=== PATIENT | female | born 1960 | race Caucasian/White ===

== ENCOUNTER 2024-05-20 09:12 | Outpatient (REF) | payer MEDICARE, SELFPAY ==
--- OUTSIDE RECORDS SUMMARY | 2024-05-20 09:21 | XMS_ITS | Data Portability ---
Author Organization [facility], Main Office Address [address] [place] [address] Care Team Providers Care Gravel Roofer Name Role Phone CLAYTON MARTINEZ Urogynecologist KO NICHOLAS Survey Manager DOUGLAS KILPATRICK Neurologist ABIDA WILL Orthopedic Surgeon TAYLER SIM Cassandra Developer MIGUEL ANGEL CESAR Psychiatrist CAROLINA THOMPSON Emt Dispatcher MOIRA TOBAR Primary Care Provider [facility] BERYL PALOMO Wire Coating Operator Metal [phone] Assessment Encounter Date Assessment Date Assessment LastModified by Organization Details LastModified Time 01/11/2022 01/11/2022 This service was provided using telemedicine. Patient consented to video & audio visit Patient was located in the [facility]. Provider was located in the office. No other persons participated in the telemedicine visit except for the patient unless otherwise indicated here. {{}} Total time of visit was 20 minutes. Notes tactile temps, fatigue, headaches, nasal congestion for >1 week consistent with possible sinusitis. Will start doxycycline and follow up as needed if not improving. [email or web address] Not available 01/11/2022 09:46:06 Plan of Treatment Reminders Order Date Submit Date Provider Last Modified By Organization Details Last Modified Time Details Appointments None acostae dVaibhav Lab lipid panel, serum 2021 022 [facility], [address], [address], [place], [address], 20:14:49 TSH, serum or plasma 2021 [facility], [address], [address], [place], [address], 20:17:01 CBC w/ auto diff 2021 [facility], [address], [address], [place], [address], 16:37:32 T4, free, serum 2021 [facility], [address], [address], [place], [address], 20:17:00 HbA1c (hemogl obin A1c), blood 2021 [facility], [address], [address], [place], [address], 17:51:54 CMP, serum or plasma 2021 [facility], [address], [address], [place], [address], 20:14:47 iron + total iron-bi nding capacit y (TIBC), serum 2021 [facility], [address], [address], [place], [address], 20:14:48 thyrogl obulin Ab, serum 2021 [facility], [address], [address], [place], [address], 10/09/202 2 14:08:44 thyroid peroxid ase (tpo) Ab, serum 2021 022 [facility], [address], [address], [place], [address], 2 14:08:45 ferriti n, serum or plasma 2021 022 [facility], [address], [address], [place], [place], [address], 2 20:16:59 CMP, serum or plasma 2022 023 [facility], [address], [address], [place], [address], 3 17:39:00 lipid panel, serum 2022 023 [facility], [address], [address], [place], [place], [address], 3 17:39:02 TSH, serum or plasma 2022 023 [facility], [address], [address], [place], [address], 3 17:42:34 CBC w/ auto diff 2022 023 [facility], [address], [address], [place], [place], [address], 3 15:04:53 T4, free, serum 2022 023 [facility], [address], [address], [place], [address], 3 17:42:32 CMP, serum or plasma 2023 024 [facility], [address], [address], [place], [place], [address], 4 06:08:22 ESR (erythr ocyte sedimen tation rate), blood 2023 [facility], [address], [place], [address], 4 06:08:25 rf (rheuma toid factor) , serum 2023 [facility], [address], [place], [address], 4 06:08:24 ALEJANDRO (antinu clear antibod ies) screen, ifa, serum 2023 [facility], [address], [place], [address], 4 06:08:23 borreli a burgdor feri IgG + IgM + total panel, IA, serum 2023 [facility], [address], [place], [address], 4 06:08:25 unliste d lab - CRP+hla -B27 2023 [facility], [address], [place], [address], 4 06:08:20 lipid panel, serum 2023 [facility], [address], [address], [place], [address], 4 06:08:23 CBC w/ auto diff 2023 [facility], [address], [address], [place], [address], 4 06:08:21 TSH + free T4, serum 2023 [facility], [address], [address], [place], [address], 4 06:08:19 strep group A, DNA, swab 2023 [facility] In-Office Order, Internal Use Only DO Not Attach Compendium DO Not Attach Compendium, Do Not Delete/merge, [id number] 4 09:47:27 heterop hile Ab, qualita tive latex aggluti nation, serum 2023 [facility], [address], [address], [place], [address], 4 06:09:13 Referral rheumat ologist referra l - hx arthrit is, nodes, deformi ties fingers sister just diagnos ed with RA 2023 [facility], [address] [place] [address], [address], 4 10:48:42 neurolo gist referra l - hx migrain es, fibromy algia, followe d by Dr. Kilpatrick who retired , needs new neurolo gist 2023 ALE Aldridge MD, [address] [place] [address] [address], [place], [address], 4 12:16:17 Procedures None recorde d. Surgeries None recorde d. Imaging bone density - due for screeni ng 2021 022 [email or web address] [facility], [address], [place], [address], 3 14:06:40 electro cardiog clarisse 2021 022 [email or web address] In-Office Order, Internal Use Only DO Not Attach Compendium DO Not Attach Compendium, Do Not Delete/merge, [id number] 2 10:19:42 MAMMO, screeni ng, ailin al - Perform Diagnos tic Mammogr am and Breast Ultraso und if needed / Perform Ultraso und Guided Aspirat ion and/or Breast Biopsy if warrant ed 2021 022 [email or web address] [facility], [address], [address], [place], [address], 10:19:42 electro cardiog clarisse 2022 023 [email or web address] In-Office Order, Internal Use Only DO Not Attach Compendium DO Not Attach Compendium, Do Not Delete/merge, [id number] 3 09:22:01 Medication Orders doxycyc line hyclate 100 mg capsule 2021 022 [email or web address] [id number], [address] [address], [place], [address], 09:36:54 hydroco done 7.5 mg-acet aminoph en 325 mg tablet 2023 024 [facility] [place], [place], [address] [place], [address], 4 16:22:03 Patient TargetsNo targets recorded. Patient Instructions Encounter Date Encounter Id Patient Instructions Last Modified By Organization Details Last Modified Time 01/11/2022 [id number] Acute Sinusitis: Care Instructions [email or web address] Not available 01/11/2022 09:48:37 03/08/2022 [id number] call or return for worsening or concerns. [email or web address] Not available 03/08/2022 10:26:13 03/11/2023 [id number] To call or retur n for worsening or concerns [email or web address] Not available 03/11/2023 08:58:47 03/16/2024 [id number] To call or retur n for worsening or concerns [email or web address] Not available 03/16/2024 10:59:13 04/06/2024 [id number] mononucleosis: care instructions [email or web address] Not available 04/06/2024 09:33:53 To call or retur n for worsening or concerns [email or web address] Not available 04/06/2024 09:33:57 Reason for Referral Permastone Mechanic Referral for Osteoarthritis hx arthritis, nodes, deformities fingers sister just diagnosed with RA Referring Physician: Moira Tobar [facility], Encounter Date: 03/16/2024 Neurologist Referral for Alexander mcbride hx migraines, fibromyalgia, followed by Dr. Kilpatrick who retired, needs new neurologist Referring Physician: Moira Tobar [facility], Encounter Date: 03/16/2024 Results Created Date Observation Date Name Description Value Unit Range Abnormal Flag Note LastModifiedBy Organization Detail LastModifiedTime 03/08/20 22 03/08/2022 COMPL ETE CBC WITH DIFF WBC 4.5 K/mm3 (4.0-1 1.0) Not Available [facility] [address] [place], [address], 03/08/2022 16:37:32 03/08/2003/08/2022 COMPL ETE CBC WITH DIFF RBC 4.88 M/mm3 (4.20- 5.40) Not Available [facility] [address] [place], [address], 03/08/2022 16:37:32 03/08/20 22 03/08/2022 COMPL ETE CBC WITH DIFF HGB 14.4 gm/dL (11.7- 15.5) Not Available [facility] [address] [place], [address], 03/08/2022 16:37:32 03/08/20 22 03/08/2022 COMPL ETE CBC WITH DIFF HCT 42.5 % (35.7- 45.8) Not Available [facility] [address] [place], [address], 03/08/2022 16:37:32 03/08/20 22 03/08/2022 COMPL ETE CBC WITH DIFF MCV 87.1 fL (80.0- 100.0) Not Available [facility] [address] [place], [address], 03/08/2022 16:37:32 03/08/20 22 03/08/2022 COMPL ETE CBC WITH DIFF MCH 29.5 pg (27.0- 34.0) Not Available [facility] [address] [place], [address], 03/08/2022 16:37:32 03/08/20 22 03/08/2022 COMPL ETE CBC WITH DIFF MCHC 33.9 g/dL (33.0- 37.0) Not Available [facility] [address] [place], [address], 03/08/2022 16:37:32 03/08/20 22 03/08/2022 COMPL ETE CBC WITH DIFF plt 152 K/mm3 (150-4 60) Not Available [facility] [address] [place], [address], 03/08/2022 16:37:32 03/08/20 22 03/08/2022 COMPL ETE CBC WITH DIFF RDW-SD 39.7 fL (<47.0 ) Not Available [facility] [address] [place], [address], 03/08/2022 16:37:32 03/08/20 22 03/08/2022 COMPL ETE CBC WITH DIFF MPV 10.5 fL (9.4-1 2.4) Not Available [facility] [address] [place], [address], 03/08/2022 16:37:32 03/08/20 22 03/08/2022 COMPL ETE CBC WITH DIFF automated NRBC 0.0 #/100 _WBC' s Not Available [facility] [address] [place], [address], 03/08/2022 16:37:32 03/08/20 22 03/08/2022 COMPL ETE CBC WITH DIFF abs. NRBC 0.0 K/mm3 Not Available [facility] [address], [address], 03/08/2022 16:37:32 03/08/20 03/08/2022 COMPL ETE CBC WITH DIFF neut # 2.7 K/mm3 (1.3-7 .0) Not Available [facility] [address] [place], [address], 03/08/2022 16:37:32 03/08/20 22 03/08/2022 COMPL ETE CBC WITH DIFF lymph # 1.0 K/mm3 (0.8-3 .1) Not Available [facility] [address] [place], [address], 03/08/2022 16:37:32 03/08/20 22 03/08/2022 COMPL ETE CBC WITH DIFF mono# 0.5 K/mm3 (0.4-0 .9) Not Available [facility] [address] [place], [address], 03/08/2022 16:37:32 03/08/20 22 03/08/2022 COMPL ETE CBC WITH DIFF eo # 0.1 K/mm3 (0.0-0 .4) Not Available [facility] [address] [place], [address], 03/08/2022 16:37:32 03/08/20 22 03/08/2022 COMPL ETE CBC WITH DIFF baso # 0.0 K/mm3 (0.0-0 .1) Not Available [facility] [address] [place], [address], 03/08/2022 16:37:32 03/08/20 22 03/08/2022 COMPL ETE CBC WITH DIFF abs. imm gran 0.0 K/mm3 Not Available [facility] [address] [place], [address], 03/08/2022 16:37:32 03/08/20 22 03/08/2022 COMPL ETE CBC WITH DIFF neut 61.0 % (44-76 ) Not Available [facility] [address] [place], [address], 03/08/2022 16:37:32 03/08/20 22 03/08/2022 COMPL ETE CBC WITH DIFF lymph 22.2 % (15-43 ) Not Available [facility] [address] [place], [address], 03/08/2022 16:37:32 03/08/20 22 03/08/2022 COMPL ETE CBC WITH DIFF monocyte 12.1 % (4.5-1 0.5) high Not Available [facility] [address] [place], [address], 03/08/2022 16:37:32 03/08/20 22 03/08/2022 COMPL ETE CBC WITH DIFF eo 3.1 % (0-6) Not Available [facility] [address] [place], [address], 03/08/2022 16:37:32 03/08/20 22 03/08/2022 COMPL ETE CBC WITH DIFF baso 0.9 % (0-2) Not Available [facility] [address] [place], [address], 03/08/2022 16:37:32 03/08/20 22 03/08/2022 COMPL ETE CBC WITH DIFF imm gran 0.7 % Not Available [facility] [address] [place], [address], 03/08/2022 16:37:32 03/08/20 22 03/08/2022 HEMOG LOBIN A1C hemoglobin A1C 5.5 % (4.0-5 .6) MONIT ORING : In known diabe tic patie nts, hemog lobin A1c targe ts masood d be discu ssed with healt h care provi marline. DIAGN OSTIC USE: The Ameri can Diabe jesu Assoc iatio n (ADA) and the World Healt h Organ izati on (WHO) recom mend the use of HbA1c to diagn ose diabe jesu using a thres hold of 6.5%. Patie nts who have an HbA1c betwe en 5.7% and 6.4% are consi dered at incre ased risk for devel oping diabe jesu in the cristofer WINTERS ON: False ly low HbA1c resul ts may be obser shalom in patie nts with hemol ytic anemi a, homoz ygous forms of abnor mal hemog lobin (e.g. SS, CC, SC), pregn derek, recen t blood loss or hemog lobin F great er than 7%. Fruct osami ne may be used as an alter juan pablo test in these cases . REFER ENCE: ADA: Stand ards of Medic al Care in Diabe jesu 2019, The Journ al of Clini zac and Appli ed Resea rch and Educa tion Volum e 43, Suppl ement 1 Not Available [facility] [address] [place], [address], 03/08/2022 17:51:54 03/08/20 22 03/08/2022 COMPR EHENS REMI METAB OLIC PANL glucose 95 mg/dL (70-99 ) Not Available [facility] [address] [place], [address], 03/08/2022 20:14:46 03/08/20 22 03/08/2022 COMPR EHENS REMI METAB OLIC PANL BUN 15 mg/dL (8-23) Not Available [facility] [address] [place], [address], 03/08/2022 20:14:46 03/08/20 22 03/08/2022 COMPR EHENS REMI METAB OLIC PANL creatinine 0.6 mg/dL (0.5-1 .0) Not Available [facility] [address] [place], [address], 03/08/2022 20:14:46 03/08/20 22 03/08/2022 COMPR EHENS REMI METAB OLIC PANL sodium 138 mmol/ L (133-1 45) Not Available [facility] [address] [place], [address], 03/08/2022 20:14:46 03/08/20 22 03/08/2022 COMPR EHENS REMI METAB OLIC PANL potassium 4.5 mmol/ L (3.6-5 .2) Not Available [facility] [address] [place], [address], 03/08/2022 20:14:46 03/08/20 22 03/08/2022 COMPR EHENS REMI METAB OLIC PANL chloride 100 mmol/ L (98-10 7) Not Available [facility] [address] [place], [address], 03/08/2022 20:14:46 03/08/20 22 03/08/2022 COMPR EHENS REMI METAB OLIC PANL bicarbonate 26 mmol/ L (22-29 ) Not Available [facility] [address] [place], [address], 03/08/2022 20:14:46 03/08/20 22 03/08/2022 COMPR EHENS REMI METAB OLIC PANL anion gap 12 (4-17) Not Available [facility] [address] [place], [address], 03/08/2022 20:14:46 03/08/20 22 03/08/2022 COMPR EHENS REMI METAB OLIC PANL albumin 5.1 gm/dL (3.4-4 .8) high Not Available [facility] [address] [place], [address], 03/08/2022 20:14:46 03/08/20 22 03/08/2022 COMPR EHENS REMI METAB OLIC PANL calcium 9.5 mg/dL (8.6-1 0.5) Not Available [facility] [address] [place], [address], 03/08/2022 20:14:46 03/08/20 22 03/08/2022 COMPR EHENS REMI METAB OLIC PANL bilirubin,to preston 0.5 mg/dL (0-1.2 ) Not Available [facility] [address] [place], [address], 03/08/2022 20:14:46 03/08/20 22 03/08/2022 COMPR EHENS REMI METAB OLIC PANL total protein 7.1 gm/dL (6.2-8 .2) Not Available [facility] [address] [place], [address], 03/08/2022 20:14:46 03/08/20 22 03/08/2022 COMPR EHENS REMI METAB OLIC PANL Ag ratio 2.6 Not Available [facility] [address] [place], [address], 03/08/2022 20:14:46 03/08/20 22 03/08/2022 COMPR EHENS REMI METAB OLIC PANL AST 20 U/L (0-32) Not Available [facility] [address] [place], [address], 03/08/2022 20:14:46 03/08/20 22 03/08/2022 COMPR EHENS REMI METAB OLIC PANL alk phos 63 U/L (35-10 4) Not Available [facility] [address] [place], [address], 03/08/2022 20:14:46 03/08/20 22 03/08/2022 COMPR EHENS REMI METAB OLIC PANL ALT 25 U/L (0-33) Not Available [facility] [address] [place], [address], 03/08/2022 20:14:46 03/08/20 22 03/08/2022 COMPR EHENS REMI METAB OLIC PANL estimated GFR creatinine 104 mL/mi n/1.7 3_M2 Creat inine based estim ated glome rular filtr ation (eGFR ) in adult s is calcu lated using the Natio nal Kidne y Found ation recom edel d 2020 CKD-E PI equat ion. Estim ates GFR from serum creat inine , age and sex. Not Available [facility] [address] [place], [address], 03/08/2022 20:14:46 03/08/20 22 03/08/2022 IRON & TIBC iron 104 mcg/d L (30-16 0) Not Available [facility] [address] [place], [address], 03/08/2022 20:14:48 03/08/20 22 03/08/2022 IRON & TIBC unsaturated iron binding capac 228 mcg/d L (110-3 70) Not Available [facility] [address] [place], [address], 03/08/2022 20:14:48 03/08/20 22 03/08/2022 IRON & TIBC est T. iron bind capacity 332 mcg/d L (140-5 30) Not Available [facility] [address] [place], [address], 03/08/2022 20:14:48 03/08/20 22 03/08/2022 IRON & TIBC % iron saturation 31 % (20-55 ) Not Available [facility] [address] [place], [address], 03/08/2022 20:14:48 03/08/20 22 03/08/2022 LIPID PANEL cholesterol, total 234 mg/dL (<200) high Not Available [facility] [address] [place], [address], 03/08/2022 20:14:49 03/08/20 22 03/08/2022 LIPID PANEL triglyceride 163 mg/dL (<150) high Not Available [facility] [address] [place], [address], 03/08/2022 20:14:49 03/08/20 22 03/08/2022 LIPID PANEL HDL chol 73 mg/dL (>39) Not Available [facility] [address] [place], [address], 03/08/2022 20:14:49 03/08/20 22 03/08/2022 LIPID PANEL LDL cholesterol, calculated 128 mg/dL (0-130 ) Not Available [facility] [address] [place], [address], 03/08/2022 20:14:49 03/08/20 22 03/08/2022 LIPID PANEL non HDL cholesterol (calc) 161 mg/dL (<160) high Not Available [facility] [address] [place], [address], 03/08/2022 20:14:49 03/08/20 22 03/08/2022 RUBINA TIN ferritin 251 NG/mL (14-28 3) Not Available [facility] [address] [place], [address], 03/08/2022 20:16:59 03/08/20 22 03/08/2022 FREE T4 free T4 0.88 NG/dL (0.70- 1.80) Not Available [facility] [address] [place], [address], 03/08/2022 20:17:00 03/08/20 22 03/08/2022 TSH TSH 1.50 uIU/m L (0.4-4 .2) Not Available [facility] [address] [place], [address], 03/08/2022 20:17:01 03/08/20 22 03/10/2022 ANTIT HYROG LOBUL IN AB antithyroglo bulin Ab <3.0 IU/mL (<4.1) Antib michell measu remen t repre sents one ellyn eter in a multi crite brenda diagn ostic proce ss. Corre late resul ts with clini zac prese ntati on. This test was perfo rmed on the Abbot t Archi tect immun oassa y syste m. Not Available [facility] [address] [place], [address], 03/10/2022 14:08:44 03/08/20 22 03/10/2022 ANTI THYRO ID PEROX IDASE AB anti thyroid peroxidase Ab <3.0 IU/mL (<5.6) Antib michell measu remen t repre sents one ellyn eter in a multi crite brenda diagn ostic proce ss. Corre late resul ts with clini zac prese ntati on. This test was perfo rmed on the [facility]bot t Archi tect immun oassa y syste m. Not Available [facility] [address] [place], [address], 03/10/2022 14:08:45 03/11/20 23 03/11/2023 COMPL ETE CBC WITH DIFF WBC 8.4 K/mm3 (4.0-1 1.0) Not Available [facility] [address] [place], [address], 03/11/2023 15:04:53 03/11/20 23 03/11/2023 COMPL ETE CBC WITH DIFF RBC 4.69 M/mm3 (4.20- 5.40) Not Available [facility] [address] [place], [address], 03/11/2023 15:04:53 03/11/20 23 03/11/2023 COMPL ETE CBC WITH DIFF HGB 13.5 gm/dL (11.7- 15.5) Not Available [facility] [address] [place], [address], 03/11/2023 15:04:53 03/11/20 23 03/11/2023 COMPL ETE CBC WITH DIFF HCT 42.4 % (35.7- 45.8) Not Available [facility] [address] [place], [address], 03/11/2023 15:04:53 03/11/20 23 03/11/2023 COMPL ETE CBC WITH DIFF MCV 90.4 fL (80.0- 100.0) Not Available [facility] [address] [place], [address], 03/11/2023 15:04:53 03/11/20 23 03/11/2023 COMPL ETE CBC WITH DIFF MCH 28.8 pg (27.0- 34.0) Not Available [facility] [address] [place], [address], 03/11/2023 15:04:53 03/11/20 23 03/11/2023 COMPL ETE CBC WITH DIFF MCHC 31.8 g/dL (33.0- 37.0) low Not Available [facility] [address] [place], [address], 03/11/2023 15:04:53 03/11/20 23 03/11/2023 COMPL ETE CBC WITH DIFF plt 178 K/mm3 (150-4 60) Not Available [facility] [address] [place], [address], 03/11/2023 15:04:53 03/11/20 23 03/11/2023 COMPL ETE CBC WITH DIFF RDW-SD 40.1 fL (<47.0 ) Not Available [facility] [address] [place], [address], 03/11/2023 15:04:53 03/11/20 23 03/11/2023 COMPL ETE CBC WITH DIFF MPV 10.8 fL (9.4-1 2.4) Not Available [facility] [address] [place], [address], 03/11/2023 15:04:53 03/11/20 23 03/11/2023 COMPL ETE CBC WITH DIFF automated NRBC 0.0 #/100 _WBC' s Not Available [facility] [address] [place], [address], 03/11/2023 15:04:53 03/11/20 23 03/11/2023 COMPL ETE CBC WITH DIFF abs. NRBC 0.0 K/mm3 Not Available [facility] [address] [place], [address], 03/11/2023 15:04:53 03/11/20 23 03/11/2023 COMPL ETE CBC WITH DIFF neut # 6.5 K/mm3 (1.3-7 .0) Not Available [facility] [address] [place], [address], 03/11/2023 15:04:53 03/11/20 23 03/11/2023 COMPL ETE CBC WITH DIFF lymph # 1.1 K/mm3 (0.8-3 .1) Not Available [facility] [address] [place], [address], 03/11/2023 15:04:53 03/11/20 23 03/11/2023 COMPL ETE CBC WITH DIFF mono# 0.6 K/mm3 (0.4-0 .9) Not Available [facility] [address] [place], [address], 03/11/2023 15:04:53 03/11/20 23 03/11/2023 COMPL ETE CBC WITH DIFF eo # 0.2 K/mm3 (0.0-0 .4) Not Available [facility] [address] [place], [address], 03/11/2023 15:04:53 03/11/20 23 03/11/2023 COMPL ETE CBC WITH DIFF baso # 0.0 K/mm3 (0.0-0 .1) Not Available [facility] [address] [place], [address], 03/11/2023 15:04:53 03/11/20 23 03/11/2023 COMPL ETE CBC WITH DIFF abs. imm gran 0.0 K/mm3 Not Available [facility] [address] [place], [address], 03/11/2023 15:04:53 03/11/20 23 03/11/2023 COMPL ETE CBC WITH DIFF neut 77.3 % (44-76 ) high Not Available [facility] [address] [place], [address], 03/11/2023 15:04:53 03/11/20 23 03/11/2023 COMPL ETE CBC WITH DIFF lymph 12.4 % (15-43 ) low Not Available [facility] [address] [place], [address], 03/11/2023 15:04:53 03/11/20 23 03/11/2023 COMPL ETE CBC WITH DIFF monocyte 7.3 % (4.5-1 0.5) Not Available [facility] [address] [place], [address], 03/11/2023 15:04:53 03/11/20 23 03/11/2023 COMPL ETE CBC WITH DIFF eo 2.1 % (0-6) Not Available [facility] [address] [place], [address], 03/11/2023 15:04:53 03/11/20 23 03/11/2023 COMPL ETE CBC WITH DIFF baso 0.4 % (0-2) Not Available [facility] [address] [place], [address], 03/11/2023 15:04:53 03/11/20 23 03/11/2023 COMPL ETE CBC WITH DIFF imm gran 0.5 % Not Available [facility] [address] [place], [address], 03/11/2023 15:04:53 03/11/20 23 03/11/2023 COMPR EHENS REMI METAB OLIC PANL glucose 91 mg/dL (70-99 ) Not Available [facility] [address] [place], [address], 03/11/2023 17:39:00 03/11/20 23 03/11/2023 COMPR EHENS REMI METAB OLIC PANL BUN 12 mg/dL (8-23) Not Available [facility] [address] [place], [address], 03/11/2023 17:39:00 03/11/20 23 03/11/2023 COMPR EHENS REMI METAB OLIC PANL creatinine 0.6 mg/dL (0.5-1 .0) Not Available [facility] [address] [place], [address], 03/11/2023 17:39:00 03/11/20 23 03/11/2023 COMPR EHENS REMI METAB OLIC PANL sodium 139 mmol/ L (133-1 45) Not Available [facility] [address] [place], [id number], 03/11/2023 17:39:00 03/11/20 23 03/11/2023 COMPR EHENS REMI METAB OLIC PANL potassium 4.6 mmol/ L (3.6-5 .2) Not Available [facility] [address] [place], [address], 03/11/2023 17:39:00 03/11/20 23 03/11/2023 COMPR EHENS REMI METAB OLIC PANL chloride 102 mmol/ L (98-10 7) Not Available [facility] [address] [place], [id number], 03/11/2023 17:39:00 03/11/20 23 03/11/2023 COMPR EHENS REMI METAB OLIC PANL bicarbonate 26 mmol/ L (22-29 ) Not Available [facility] [address] [place], [address], 03/11/2023 17:39:00 03/11/20 23 03/11/2023 COMPR EHENS REMI METAB OLIC PANL anion gap 11 (4-17) Not Available [facility] [address] [place], [address], 03/11/2023 17:39:00 03/11/20 23 03/11/2023 COMPR EHENS REMI METAB OLIC PANL albumin 4.7 gm/dL (3.4-4 .8) Not Available [facility] [address] [place], [id number], 03/11/2023 17:39:00 03/11/20 23 03/11/2023 COMPR EHENS REMI METAB OLIC PANL calcium 9.2 mg/dL (8.6-1 0.5) Not Available [facility] [address] [place], [id number], 03/11/2023 17:39:00 03/11/20 23 03/11/2023 COMPR EHENS REMI METAB OLIC PANL bilirubin,to preston 0.2 mg/dL (0-1.2 ) Not Available [facility] [address] [place], [address], 03/11/2023 17:39:00 03/11/20 23 03/11/2023 COMPR EHENS REMI METAB OLIC PANL total protein 6.6 gm/dL (6.2-8 .2) Not Available [facility] [address] [place], [address], 03/11/2023 17:39:00 03/11/20 23 03/11/2023 COMPR EHENS REMI METAB OLIC PANL Ag ratio 2.5 Not Available [facility] [address] [place], [address], 03/11/2023 17:39:00 03/11/20 23 03/11/2023 COMPR EHENS REMI METAB OLIC PANL AST 24 U/L (0-32) Not Available [facility] [address] [place], [id number], 03/11/2023 17:39:00 03/11/20 23 03/11/2023 COMPR EHENS REMI METAB OLIC PANL alk phos 68 U/L (35-10 4) Not Available [facility] [address] [place], [id number], 03/11/2023 17:39:00 03/11/20 23 03/11/2023 COMPR EHENS REMI METAB OLIC PANL ALT 31 U/L (0-33) Not Available [facility] [address] [place], [address], 03/11/2023 17:39:00 10/03/21 2303/11/2023 COMPR EHENS REMI METAB OLIC PANL estimated GFR creatinine 101 mL/mi n/1.7 3_M2 Creat inine based estim ated glome josephr filtr ation (eGFR ) in adult s is calcu lated using the Natio nal Kidne y Found ation recom edel d 2020 CKD-E PI equat ion. Estim ates GFR from serum creat inine , age and sex. Not Available [facility] [address] [place], [id number], 03/11/2023 17:39:00 03/11/20 23 03/11/2023 LIPID PANEL cholesterol, total 213 mg/dL (<200) high Not Available [facility] [address] [place], [address], 03/11/2023 17:39:02 03/11/20 23 03/11/2023 LIPID PANEL triglyceride 156 mg/dL (<150) high Not Available [facility] [address] [place], [address], 03/11/2023 17:39:02 03/11/20 23 03/11/2023 LIPID PANEL HDL chol 65 mg/dL (>39) Not Available [facility] [address] [place], [address], 03/11/2023 17:39:02 03/11/20 23 03/11/2023 LIPID PANEL LDL cholesterol, calculated 117 mg/dL (0-130 ) Not Available [facility] [address] [place], [address], 03/11/2023 17:39:02 03/11/20 23 03/11/2023 LIPID PANEL non HDL cholesterol (calc) 148 mg/dL (<160) Not Available [facility] [address] [place], [address], 03/11/2023 17:39:02 03/11/20 23 03/11/2023 FREE T4 free T4 0.93 NG/dL (0.70- 1.80) Not Available [facility] [address] [place], [address], 03/11/2023 17:42:32 03/11/20 23 03/11/2023 TSH TSH 2.09 uIU/m L (0.4-4 .2) Not Available [facility] [address] [place], [address], 03/11/2023 17:42:33 03/16/2003/17/2024 TSH+F REE T4 TSH 1.340 uIU/m L 0.450- 4.500 normal Not Available [facility] ([facility]) [address] [facility], [place], [address], 03/25/2024 06:08:19 03/16/2003/17/2024 TSH+F REE T4 T4,free(dire ct) 0.89 NG/dL 0.82-1 .77 normal Not Available [facility] ([facility]) [address] [place], [address], 03/25/2024 06:08:19 03/16/2003/17/2024 CRP+H LA-B2 7 C-reactive protein, quant 5 mg/L 0-10 normal Not Available [facility] ([facility]) [address] [place], [address], 03/25/2024 06:08:20 03/16/2003/22/2024 CRP+H LA-B2 7 hla-B27 Negati ve HLA-B *27 Negat remi B27 allel e inter preta tion for all loci based on IMGT/ HLA datab ase versi on 3. 0 This test was devel oped and its perfo rmanc e franck cteri stics deter mined by [facility]. It has not been clear ed or appro shalom by the Food and Drug Admin istra tion. [facility] CLIA ID Numbe r [id number] This test was perfo rmed using Polym erase Chain React ion (PCR) and Seque nce Speci fic Oligo nucle otide Probe s (SSOP ) techn ique. Seque nce Based Typin g (SBT) may be used as a suppl ement al metho rosa when neces sharlene. If you have quest ions, pleizaiah e call [facility] adithya rdz ce at [phone] or email at [facility] [email or web address] orp.c om. Not Available [facility] ([facility]) [address] [facility], [place], [address], 03/25/2024 06:08:20 03/16/2003/17/2024 CBC WITH DIFFE RENTI AL/PL ATELE T WBC 6.6 x10e3 /uL 3.4-10 .8 normal Not Available [facility] ([facility]) [address] [facility], [place], [address], 03/25/2024 06:08:21 03/16/2003/17/2024 CBC WITH DIFFE RENTI AL/PL ATELE T RBC 4.94 x10e6 /uL 3.77-5 .28 normal Not Available [facility] ([facility]) [address] [facility], [place], [address], 03/25/2024 06:08:21 03/16/2003/17/2024 CBC WITH DIFFE RENTI AL/PL ATELE T hemoglobin 14.4 g/dL 11.1-1 5.9 normal Not Available [facility] ([facility]) [address] [facility], [place], [address], 03/25/2024 06:08:21 03/16/2003/17/2024 CBC WITH DIFFE RENTI AL/PL ATELE T hematocrit 44.3 % 34.0-4 6.6 normal Not Available [facility] ([facility]) [address] [facility], [place], [address], 03/25/2024 06:08:21 03/16/2003/17/2024 CBC WITH DIFFE RENTI AL/PL ATELE T MCV 90 fL 79-97 normal Not Available [facility] ([facility]) [address] [facility], [place], [address], 03/25/2024 06:08:21 03/16/2003/17/2024 CBC WITH DIFFE RENTI AL/PL ATELE T MCH 29.1 pg 26.6-3 3.0 normal Not Available [facility] ([facility]) [address] [facility], [place], [address], 03/25/2024 06:08:21 03/16/2003/17/2024 CBC WITH DIFFE RENTI AL/PL ATELE T MCHC 32.5 g/dL 31.5-3 5.7 normal Not Available [facility] ([facility]) [address] [facility], [place], [address], 03/25/2024 06:08:21 03/16/2003/17/2024 CBC WITH DIFFE RENTI AL/PL ATELE T RDW 12.5 % 11.7-1 5.4 Not Available [facility] ([facility]) [address] [facility], [place], [address], 03/25/2024 06:08:21 03/16/2003/17/2024 CBC WITH DIFFE RENTI AL/PL ATELE T platelets 206 x10e3 /uL 150-45 0 normal Not Available [facility] ([facility]) [address] [facility], [place], [address], 03/25/2024 06:08:21 03/16/2003/17/2024 CBC WITH DIFFE RENTI AL/PL ATELE T neutrophils 69 % not estab. normal Not Available [facility] ([facility]) [address] [facility], [place], [address], 03/25/2024 06:08:21 03/16/2003/17/2024 CBC WITH DIFFE RENTI AL/PL ATELE T lymphs 18 % not estab. normal Not Available [facility] ([facility]) [address] [facility], [place], [address], 03/25/2024 06:08:21 03/16/2003/17/2024 CBC WITH DIFFE RENTI AL/PL ATELE T monocytes 8 % not estab. normal Not Available [facility] ([facility]) [address] [facility], [place], [address], 03/25/2024 06:08:21 03/16/2003/17/2024 CBC WITH DIFFE RENTI AL/PL ATELE T eos 3 % not estab. normal Not Available [facility] ([facility]) [address] [place], [address], 03/25/2024 06:08:21 03/16/2003/17/2024 CBC WITH DIFFE RENTI AL/PL ATELE T basos 1 % not estab. normal Not Available [facility] ([facility]) [address] [facility], [place], [address], 03/25/2024 06:08:21 03/16/2003/17/2024 CBC WITH DIFFE RENTI AL/PL ATELE T immature cells SALVAGE INSPECTOR Not Available [facility] ([facility]) [address] [place], [address], 03/25/2024 06:08:21 03/16/2003/17/2024 CBC WITH DIFFE RENTI AL/PL ATELE T neutrophils (absolute) 4.6 x10e3 /uL 1.4-7. 0 normal Not Available [facility] ([facility]) [address] [place], [address], 03/25/2024 06:08:21 03/16/2003/17/2024 CBC WITH DIFFE RENTI AL/PL ATELE T lymphs (absolute) 1.2 x10e3 /uL 0.7-3. 1 normal Not Available [facility] ([facility]) [address] [place], [address], 03/25/2024 06:08:21 03/16/2003/17/2024 CBC WITH DIFFE RENTI AL/PL ATELE T monocytes(ab solute) 0.5 x10e3 /uL 0.1-0. 9 normal Not Available [facility] ([facility]) [address] [facility], [place], [address], 03/25/2024 06:08:21 03/16/2003/17/2024 CBC WITH DIFFE RENTI AL/PL ATELE T eos (absolute) 0.2 x10e3 /uL 0.0-0. 4 normal Not Available [facility] ([facility]) [address] [facility], [place], [address], 03/25/2024 06:08:21 03/16/2003/17/2024 CBC WITH DIFFE RENTI AL/PL ATELE T baso (absolute) 0.0 x10e3 /uL 0.0-0. 2 normal Not Available [facility] ([facility]) [address] [facility], [place], [address], 03/25/2024 06:08:21 03/16/2003/17/2024 CBC WITH DIFFE RENTI AL/PL ATELE T immature granulocytes 1 % not estab. Not Available [facility] ([facility]) [address] [facility], [place], [address], 03/25/2024 06:08:21 03/16/2003/17/2024 CBC WITH DIFFE RENTI AL/PL ATELE T immature grans (abs) 0.0 x10e3 /uL 0.0-0. 1 Not Available [facility] ([facility]) [address] [place], [address], 03/25/2024 06:08:21 03/16/2003/17/2024 CBC WITH DIFFE RENTI AL/PL ATELE T NRBC SALVAGE INSPECTOR Not Available [facility] ([facility]) [address] [facility], [place], [address], 03/25/2024 06:08:21 03/16/2003/17/2024 CBC WITH DIFFE PARESH AL/BRITTNEE Polo hematology comments: SALVAGE INSPECTOR Not Available [facility] ([facility]) [address] [facility], [place], [address], 03/25/2024 06:08:21 03/16/2003/17/2024 COMP. METAB OLIC PANEL (14) glucose 93 mg/dL 70-99 normal Not Available [facility] ([facility]) [address] [facility], [place], [address], 03/25/2024 06:08:22 03/16/2003/17/2024 COMP. METAB OLIC PANEL (14) BUN 9 mg/dL 8-27 normal Not Available [facility] ([facility]) [address] [facility], [place], [address], 03/25/2024 06:08:22 03/16/2003/17/2024 COMP. METAB OLIC PANEL (14) creatinine 0.68 mg/dL 0.57-1 .00 normal Not Available [facility] ([facility]) [address] [facility], [place], [address], 03/25/2024 06:08:22 03/16/2003/17/2024 COMP. METAB OLIC PANEL (14) eGFR 98 mL/mi n/1.7 3 >59 normal Not Available [facility] ([facility]) [address] [facility] [place], [address], 03/25/2024 06:08:22 03/16/2003/17/2024 COMP. METAB OLIC PANEL (14) BUN/creatini ne ratio 13 12-28 normal Not Available [facility] ([facility]) [address] [facility], [place], [address], 03/25/2024 06:08:22 03/16/2003/17/2024 COMP. METAB OLIC PANEL (14) sodium 140 mmol/ L 134-14 4 normal Not Available [facility] ([facility]) [address] [facility] [place], [address], 03/25/2024 06:08:22 03/16/2003/17/2024 COMP. METAB OLIC PANEL (14) potassium 4.6 mmol/ L 3.5-5. 2 normal Not Available [facility] ([facility]) [address] [facility] [place], [address], 03/25/2024 06:08:22 03/16/2003/17/2024 COMP. METAB OLIC PANEL (14) chloride 99 mmol/ L 96-106 normal Not Available [facility] ([facility]) [address] [facility] [place], [address], 03/25/2024 06:08:22 03/16/2003/17/2024 COMP. METAB OLIC PANEL (14) carbon dioxide, total 24 mmol/ L 20-29 normal Not Available [facility] ([facility]) [address] [facility] [place], [address], 03/25/2024 06:08:22 03/16/2003/17/2024 COMP. METAB OLIC PANEL (14) calcium 9.5 mg/dL 8.7-10 .3 normal Not Available [facility] ([facility]) [address] [facility] [place], [address], 03/25/2024 06:08:22 03/16/2003/17/2024 COMP. METAB OLIC PANEL (14) protein, total 7.1 g/dL 6.0-8. 5 normal Not Available [facility] ([facility]) [address] [facility] [place], [address], 03/25/2024 06:08:22 03/16/2003/17/2024 COMP. METAB OLIC PANEL (14) albumin 4.7 g/dL 3.9-4. 9 normal Not Available [facility] ([facility]) [address] [place], [address], 03/25/2024 06:08:22 03/16/20 24 03/17/2024 COMP. METAB OLIC PANEL (14) globulin, total 2.4 g/dL 1.5-4. 5 Not Available [facility] ([facility]) [address] [place], [address], 03/25/2024 06:08:22 03/16/2003/17/2024 COMP. METAB OLIC PANEL (14) bilirubin, total 0.3 mg/dL 0.0-1. 2 normal Not Available [facility] ([facility]) [address] [place], [address], 03/25/2024 06:08:22 03/16/2003/17/2024 COMP. METAB OLIC PANEL (14) alkaline phosphatase 73 IU/L 44-121 normal Not Available [facility] ([facility]) [address] [place], [address], 03/25/2024 06:08:22 03/16/2003/17/2024 COMP. METAB OLIC PANEL (14) AST (SGOT) 35 IU/L 0-40 normal Not Available [facility] ([facility]) [address] [place], [address], 03/25/2024 06:08:22 03/16/2003/17/2024 COMP. METAB OLIC PANEL (14) ALT (SGPT) 46 IU/L 0-32 above high normal Not Available [facility] ([facility]) [address] [place], [address], 03/25/2024 06:08:22 03/16/2003/17/2024 LIPID PANEL cholesterol, total 234 mg/dL 100-19 9 above high normal Not Available [facility] ([facility]) [address] [place], [address], 03/25/2024 06:08:22 03/16/2003/17/2024 LIPID PANEL triglyceride s 117 mg/dL 0-149 normal Not Available [facility] ([facility]) [address] [place], [address], 03/25/2024 06:08:22 03/16/2003/17/2024 LIPID PANEL HDL cholesterol 78 mg/dL >39 normal Not Available [facility] ([facility]) [address] [place], [address], 03/25/2024 06:08:22 03/16/2003/17/2024 LIPID PANEL VLDL cholesterol zac 20 mg/dL 5-40 Not Available [facility] ([facility]) [address] [place], [address], 03/25/2024 06:08:22 03/16/2003/17/2024 LIPID PANEL LDL chol calc ([facility]) 136 mg/dL 0-99 above high normal Not Available [facility] ([facility]) [address] [place], [address], 03/25/2024 06:08:22 03/16/2003/17/2024 LIPID PANEL LDL calc comment: SALVAGE INSPECTOR Not Available [facility] ([facility]) [address] [place], [address], 03/25/2024 06:08:22 03/16/2003/25/2024 ANTI- NUCLE AR AB BY IFA (RDL) anti-nuclear Ab by ifa (rdl) Positi ve negati ve abnormal Not Available [facility] [address] [place] [address], [address], 03/25/2024 06:08:23 03/16/2003/25/2024 ANTI- NUCLE AR AB BY IFA (RDL) homogeneous pattern SALVAGE INSPECTOR Not Available [facility] [address] [place], [address], 03/25/2024 06:08:23 03/16/2003/25/2024 ANTI- NUCLE AR AB BY IFA (RDL) nucleolar pattern SALVAGE INSPECTOR Not Available [facility] [address] [place], [address], 03/25/2024 06:08:23 03/16/2003/25/2024 ANTI- NUCLE AR AB BY IFA (RDL) speckled pattern 1:80 <1:40 above high normal Not Available [facility] [address] [place], [address], 03/25/2024 06:08:23 03/16/2003/25/2024 ANTI- NUCLE AR AB BY IFA (RDL) centromere pattern SALVAGE INSPECTOR Not Available [facility] [address] [place], [address], 03/25/2024 06:08:23 03/16/2003/25/2024 ANTI- NUCLE AR AB BY IFA (RDL) spindle apparatus pattern SALVAGE INSPECTOR Not Available [facility] [address] [place], [address], 03/25/2024 06:08:23 03/16/2003/25/2024 ANTI- NUCLE AR AB BY IFA (RDL) nuclear membrane pattern SALVAGE INSPECTOR Not Available [facility] [address] [place], [address], 03/25/2024 06:08:23 03/16/2003/25/2024 ANTI- NUCLE AR AB BY IFA (RDL) midbody pattern SALVAGE INSPECTOR Not Available [facility] [address] [place], [address], 03/25/2024 06:08:23 03/16/2003/25/2024 ANTI- NUCLE AR AB BY IFA (RDL) nuclear dot pattern SALVAGE INSPECTOR Not Available [facility] [address] [place], [address], 03/25/2024 06:08:23 03/16/20 24 03/25/2024 ANTI- NUCLE AR AB BY IFA (RDL) pcna pattern SALVAGE INSPECTOR Not Available [facility] [address] [place] [address], [address], 03/25/2024 06:08:23 03/16/20 24 03/25/2024 ANTI- NUCLE AR AB BY IFA (RDL) centriole pattern SALVAGE INSPECTOR Not Available [facility] [address] [place] [address], [address], 03/25/2024 06:08:23 03/16/2003/25/2024 ANTI- NUCLE AR AB BY IFA (RDL) note: Commen t ALEJANDRO perfo rmed by Indir ect Fluor escen t Antib michell (IFA) Not Available [facility] [address] [place] [address], [address], 03/25/2024 06:08:23 03/16/20 24 03/17/2024 RHEUM ATOID FACTO R (RF) rheumatoid factor (rf) <10.0 IU/mL <14.0 Not Available [facility] ([facility]) [address] [facility], [place], [address], 03/25/2024 06:08:24 03/16/20 24 03/17/2024 LYME DISEA SE SEROL OGY W/REF KENAN lyme total antibody anjelica Negati ve negati ve Lyme antib odies not detec inder. Refle x testi ng is not indic ated. No labor atory evide nce of infec tion with B. burgd orfer i (Lyme disea se). Negat remi resul ts may occur in patie nts recen tly infec inder (less than or equal to 14 days) with B. burgd orfer i. If recen t infec tion is suspe cted, repea t testi ng on a new sampl e colle cted in 7 to 14 days is recom edel d. Not Available [facility] ([facility]) [address] [facility], [place], [address], 03/25/2024 06:08:24 03/16/20 24 03/17/2024 SEDIM ENTAT ION RATE- WESTE RGREN sedimentatio n rate-westerg mirella 11 mm/HR 0-40 normal Not Available [facility] ([facility]) [address] [facility], [place], [address], 03/25/2024 06:08:25 04/06/20 24 04/07/2024 MONO QUAL W/RFL X QN mono qual w/rflx qn Negati ve negati ve The sensi tivit y of Heter ophil e antib michell testi ng is 80-90 %. Epste in Cox IgM testi ng offer s highe r sensi tivit y. Not Available [facility] ([facility]) [address] [facility], [place], [address], 04/07/2024 06:09:13 04/06/20 24 04/06/2024 strep group A, DNA, swab ID NOW Strep A 2 (rapid molecular test) negati ve Not Available In-Office Order Internal Use Only DO Not Attach Compendium DO Not Attach Compendium, Do Not Delete/merge, [id number] 04/06/2024 09:33:33 03/08/20 22 03/08/2022 elect rocar diogr am No observ ation record ed. [email or web address] In-Office Order Internal Use Only DO Not Attach Compendium DO Not Attach Compendium, Do Not Delete/merge, [id number] 03/08/2022 10:37:50 03/08/20 22 elect rocar diogr am No observ ation record ed. [email or web address] In-Office Order Internal Use Only DO Not Attach Compendium DO Not Attach Compendium, Do Not Delete/merge, [id number] 03/08/2022 10:17:27 12/13/1912/12/2022 MAMMO , scree krissy, digit al, bilat eral PROCED URE: MM Digita l Mammo Screen ing INDICA TION: Screen ing for breast cancer . No known palpab le abnorm alitie s. COMPAR DIDIER: 2021 and multip le prior studie s. TECHNI QUE: Full-f ield digita l CC and MLO 3D tomosy nthesi s images of both breast s were acquir ed. Comput er-aid ed detect ion (CAD) was utiliz ed in the interp retati on of this study. DENSIT Y: The breast tissue contai ns scatte red areas of fibrog landul ar densit y. FINDIN GS: No suspic ious masses , suspic ious microc alcifi cation s, or areas of tomer ectura l distor tion are seen in either breast to sugges t malign derek. IMPRES EFE: No mammog raphic eviden ce of malign derek. RECOMM ENDATI ON: Annual mammog raphic screen ing BI-RAD S: 1 (Negat remi) Lay letter mailed to cruz polo WSN: [id number] Orderi ng Physic juan pablo: Amadou BELL, Jody Bhardwaj Dictat ed By: Nydia Guajardo MD Dictleesa ed Date/T marito: 12:13 pm Review ed By: Nydia Guajardo MD Signed By: Nydia Guajardo MD Signed Date/T marito: 12:13 pm Transc ribed By: CSB Transc riptio n Date/T marito: 12:08 pm Birads : Cruz polo Class: Outpat ient [facility] ([facility]) [address] , [place], [address], 12/12/2022 13:45:48 12/14/[birth year]12/12/2022 DEXA, axial skele ton Name:Scarlett polo ID: [id number] Age:62 years Sex:Fe male Ethnic ity:Wh ite Date of : [birth year] Reason : M85.89 OSTEOP ENIA. Referr ing Provid er:Kyaw Benavidesbet Study: Dexa Bone Densit y (Axial ) Bone Densit y: Region BMD T-Scor e Z-Scor e Classi ficati on AP Spine 0.792 -2.3 -0.8 Osteop enia TOTAL HIP 1.041 0.8 1.8 Normal FEM NECK 0.767 -0.7 0.6 Normal 10-yea r Fractu re Risk: 1 FRAX(R ) Versio n 3.08. Fractu re probab ility calcul ated for an untrea inder juveen t. Fractu re probab ility may be lower if the patien t has receiv ed treatm ent. Major Osteop orotic Fractu re Fractu re Risk With Prior Fractu re: 12% Hip Fractu re Fractu re Risk With Prior Fractu re: 0.6% RATE OF CHANGE (SPINE ): BMD values have increa sed 2.8% from previo us BMD values have decrea sed 0.5% from baseli ne RATE OF CHANGE (TOTAL HIP): BMD values have increa sed 0.7% from previo us BMD values have increa sed 5.4% from baseli ne RATE OF CHANGE (FEMOR AL NECK): BMD values have decrea sed 1.3% from previo us BMD values have increa sed 2.3% from baseli ne Impres efe: The patien t has osteop enia as determ ined by WHO criter ia. Based on the result s of the patien t's bone densit y assess ment, the risk of future fractu re increa ses approx imatel y two fold for each 1.0 SD decrea se in T-scor e. Howeve r, low BMD is not the only risk factor for a future fragil ity fractu re. Other clinic al risk factor s for osteop orotic fractu re should be consid ered in ascert aining this patien t's future fractu re risk includ ing the patien t's age, previo us osteop orotic (fragi lity) fractu re, estrog en defici ency/h ypogon adism, risk of fallin g, use of medica tions implic ated in bone loss (gluco cortic oids), family histor y of osteop orotic fractu re, diseas es and condit ions associ ated with bone loss, low body weight , smokin g, high bone turnov er, etc. Combin ing low BMD and other clinic al risk factor s result in a more precis e assess ment of future fractu re risk. Second pascual causes for osteop orosis , such as osteom alacia , other metabo lic bone disord ers, and diseas es and condit ions that may contri bute to accele rated bone loss may have to be consid ered depend ing on the clinic al situat ion. A repeat bone densit y assess ment should be consid ered in two years. WSN: [id number] Orderi ng Physic juan pablo: Jody Tobar Dictat ed By: Liz Mckeon ra, MD Dictat ed Date/T marito: 11:11 a Review ed By: Liz Mckeon ra, MD Signed By: Liz Mckeon ra, MD Signed Date/T marito: 11:11 am Transc ribed By: WILLIAMS Transc ribed Date/T marito: 11:09 am Patien t Class: Outpat ient [facility] (Outpt Imaging) [address] [place], [address], 12/13/2022 14:14:03 03/11/2003/17/2023 elect edson mckeon am No observ ation record ed. [email or web address] In-Office Order Internal Use Only DO Not Attach Compendium DO Not Attach Compendium, Do Not Delete/merge, [id number] 03/18/2023 09:02:19 03/11/20 elect rocar diogr am No observ ation record ed. [email or web address] In-Office Order Internal Use Only DO Not Attach Compendium DO Not Attach Compendium, Do Not Delete/merge, [id number] 03/11/2023 09:18:48 Result Notes None recorded. Problems Name Problem SNOMED Code Status Onset Date Resolution Date Notes Provider Name and Address Organization Details Recorded Time Pain in axilla 715782604 Completed 11/23/2016 NETO Mancini [facility] 7 11:20:57 Hand joint pain 197272917 Completed 11/23/2016 Sagrario Musa MA null, [facility] 7 11:20:49 Acute conjunct ivitis 87778794 Completed 201101/06/2014 RECORDED 02/17/20 12 4:34PM BY LINDA TORIBIO MA, ANNOTATI ON/ADDEN DUM Maritza Martinez null, [facility] 6 15:42:18 Acute sinusiti s [id number] Completed 200701/06/2014 RECORDED 01/12/20 08 1:25PM BY JANUARY BAEZA MA, ANNOTATI ON/ADDEN DUM Maritza Martinez null, [facility] 6 15:42:18 Screenin g for malignan t neoplasm of breast Completed 201101/06/2014 RECORDED 02/17/20 12 4:34PM BY LINDA TORIBIO MA, ANNOTATI ON/ADDEN DUM Maritza Martinez null, [facility] 6 15:42:19 Conjunct ivitis [id number] Completed 200801/06/2014 RECORDED 12/20/19 09 11:09AM BY HERACLIO NETTLESATI ON/ADDEN DUM Maritza Martinez null, [facility] 6 15:42:18 Cough [id number] Completed 200801/06/2014 RECORDED 11/04/19 09 1:57PM BY ESTEVAN BAEZA, ANNOTATI ON/ADDEN DUM Maritza Martinez null, [facility] 6 15:42:18 Disorder of nail 58641462 Completed 201101/06/2014 RECORDED 02/27/20 12 10:12AM BY ANGELIA PARR MA, ANNOTATI ON/ADDEN DUM Maritza Martinez null, [facility] 6 15:42:18 Dysphagi a [id number] Completed 200801/06/2014 RECORDED 11/04/19 09 1:57PM BY HERACLIO MOFFETTATI ON/ADDEN DUM Maritza Martinez null, [facility] 6 15:42:18 Edema [id number] Completed 200801/06/2014 RECORDED 12/20/19 09 11:09AM BY MARILEE NETTLES ON/ADDEN DUM Maritza Martinez null, [facility] 6 15:42:18 Elevated blood-pr essure reading without diagnosi s of hyperten efe [id number] Completed 201101/06/2014 RECORDED 02/17/20 12 4:34PM BY LINDA TORIBIO MA, MARILEE ON/ADDEN DUM Maritza Martinez null, [facility] 6 15:42:18 Malaise and fatigue [id number] Completed 201301/06/2014 RECORDED 06/15/19 14 7:45AM BY TATYANA ALBRIGHT MA, ANNOTATI ON/ADDEN DUM Maritza Martinez null, [facility] 6 15:42:18 Influenz a vaccine needed [id number] 06 Completed 201301/06/2014 RECORDED 06/15/19 14 7:45AM BY TATYANA ALBRIGHT MA, MARILEE ON/ADDEN DUM Maritza Martinez null, [facility] 6 15:42:18 General examinat ion of patient Completed 200801/06/2014 RESOLVED DATE: 10/05/19 09; RECORDED 10/05/19 09 9:36AM BY MARILEE MOFFETT ON/ADDEN DUM Maritza Martinez null, [facility] 6 15:42:18 Headache [id number] Completed 201101/06/2014 STORY: NEW ONSET ACCOMPAN IED BY TINGLING LEFT SIDE OF MOUTH AND H/O RIGHT SIDED HAND WEAKNESS LAST NIGHT; IMPRESSI ON: NON-FOCA L NEURO EXAM AND NO FACIAL PALSY BUT CONCERNI NG HISTORY, WILL GET HEAD CT; RECORDED 02/17/20 12 4:34PM BY LINDA TORIBIO MA, ANNOTATI ON/ADDEN DUM Maritza Martinez null, [facility] 6 15:42:18 Hyperlip idemia 45108937 Completed 201101/06/2014 RECORDED 02/17/20 12 4:34PM BY LINDA TORIBIO MA, ANNOTATI ON/ADDEN DUM Moira Tobar, [facility] [address] [facility] [address], [facility] [address], [facility] 2 15:37:16 Lateral epicondy litis 011465548 Completed 200801/06/2014 RECORDED 12/20/19 09 11:10AM BY NETO CAMP, HERACLIOATI ON/ADDEN DUM Maritza Martinez null, [facility] 6 15:42:18 Lymphade nitis 94993613 Completed 201101/06/2014 RECORDED 02/17/20 12 4:35PM BY LINDA TORIBIO MA, ANNOTATI ON/ADDEN DUM Maritza Martinez null, [facility] 6 15:42:18 Elevated level of transami nase and lactic acid dehydrog enase 107206898 Completed 200801/06/2014 RECORDED 12/20/19 09 11:09AM BY NETO CAMP, HERACLIOATI ON/ADDEN DUM Maritza Martinez null, [facility] 6 15:42:18 Shoulder joint pain 353571140 Completed 201101/06/2014 RECORDED 02/17/20 12 4:34PM BY LINDA TORIBIO MA, ANNOTATI ON/ADDEN DUM Maritza Martinez null, [facility] 6 15:42:18 Palpitat ions 04453469 Completed 200801/06/2014 RECORDED 12/20/19 09 11:09AM BY NETO CAMP, HERACLIOATI ON/ADDEN DUM Maritza Martinez null, [facility] 6 15:42:18 Prematur e laius e 195122134 Completed 201101/06/2014 RECORDED 02/17/20 12 4:34PM BY LINDA TORIBIO MA, ANNOTATI ON/ADDEN DUM Maritza Martinez null, [facility] 6 15:42:18 Eruption [id number] Completed 201101/06/2014 RECORDED 02/17/20 12 4:34PM BY LINDA TORIBIO MA, ANNOTATI ON/ADDEN DUM Maritza Martinez null, [facility] 6 15:42:18 Adult health examinat ion Completed 201101/06/2014 RECORDED 02/27/20 12 10:12AM BY ANGELIA PARR MA, ANNOTATI ON/ADDEN DUM Maritza Martinez null, [facility] 6 15:42:18 Screenin g for malignan t neoplasm of colon Completed 200701/06/2014 RECORDED 01/12/20 08 1:25PM BY JANUARY BAEZA MA, ANNOTATI ON/ADDEN DUM Maritza Martinez null, [facility] 6 15:42:19 Viral disease 93683520 Completed 201101/06/2014 RECORDED 02/17/20 12 4:34PM BY LINDA TORIBIO MA, ANNOTATI ON/ADDEN DUM Maritza Martinez null, [facility] 6 15:42:18 Abnormal weight gain 888445238 Completed 201101/06/2014 RECORDED 02/17/20 12 4:35PM BY LINDA TORIBIO MA, ANNOTATI ON/ADDEN DUM Maritza Martinez null, [facility] 6 15:42:18 Acute conjunct ivitis 95425479 Completed 201101/07/2014 RECORDED 02/17/20 12 4:34PM BY LINDA TORIBIO MA, ANNOTATI ON/ADDEN DUM Maritza Martinez null, [facility] 6 15:42:18 Acute sinusiti s 26589545 Completed 200701/07/2014 RECORDED 01/12/20 08 1:25PM BY JANUARY BAEZA MA, ANNOTATI ON/ADDEN DUM Maritza Martinez null, [facility] 6 15:42:18 Screenin g for malignan t neoplasm of breast Completed 201101/07/2014 RECORDED 02/17/20 12 4:34PM BY LINDA TORIBIO MA, ANNOTATI ON/ADDEN DUM Maritza Martinez null, [facility] 6 15:42:19 Conjunct ivitis 1508452 Completed 200801/07/2014 RECORDED 12/20/19 09 11:09AM BY NETO CAMP, HERACLIOATI ON/ADDEN DUM Maritza Martinez null, [facility] 6 15:42:18 Cough 47606766 Completed 200801/07/2014 RECORDED 11/04/19 09 1:57PM BY HERACLIO MOFFETTATI ON/ADDEN DUM Maritza Martinez null, [facility] 6 15:42:18 Disorder of nail 28891998 Completed 201101/07/2014 RECORDED 02/27/20 12 10:12AM BY ANGELIA PARR MA, MARILEE ON/ADDEN DUM Maritza Martinez null, [facility] 6 15:42:18 Dysphagi a 60178670 Completed 200801/07/2014 RECORDED 11/04/19 09 1:57PM BY HERACLIO MOFFETTATI ON/ADDEN DUM Maritza Martinez null, [facility] 6 15:42:18 Edema 237702584 Completed 200801/07/2014 RECORDED 12/20/19 09 11:09AM BY MARILEE NETTLES ON/ADDEN DUM Maritza Martinez null, [facility] 6 15:42:18 Elevated blood-pr essure reading without diagnosi s of hyperten efe 680605642 Completed 201101/07/2014 RECORDED 02/17/20 12 4:34PM BY LINDA TORIBIO MA, MARILEE ON/ADDEN DUM Maritza Martinez null, [facility] 6 15:42:18 Malaise and fatigue 907270428 Completed 201301/07/2014 RECORDED 06/15/19 14 7:45AM BY TATYANA ALBRIGHT MA, MARILEE ON/ADDEN DUM Maritza Martinez null, [facility] 6 15:42:18 Influenz a vaccine needed [id number] 06 Completed 201301/07/2014 RECORDED 06/15/19 14 7:45AM BY TATYANA ALBRIGHT MA, MARILEE ON/ADDEN DUM Maritza Martinez null, [facility] 6 15:42:18 General examinat ion of patient Completed 200801/07/2014 RESOLVED DATE: 10/05/19 09; RECORDED 10/05/19 09 9:36AM BY MARILEE MOFFETT ON/ADDEN DUM Maritza Martinez null, [facility] 6 15:42:19 Headache 96388573 Completed 201101/07/2014 STORY: NEW ONSET ACCOMPAN IED BY TINGLING LEFT SIDE OF MOUTH AND H/O RIGHT SIDED HAND WEAKNESS LAST NIGHT; IMPRESSI ON: NON-FOCA L NEURO EXAM AND NO FACIAL PALSY BUT CONCERNI NG HISTORY, WILL GET HEAD CT; RECORDED 02/17/20 12 4:34PM BY LINDA TORIBIO MA, MARILEE ON/ADDEN DUM Maritza Martinez antonio, [facility] 6 15:42:18 Hyperlip idemia 77060560 Completed 201101/07/2014 RECORDED 02/17/20 12 4:34PM BY LINDA TORIBIO MA, MARILEE ON/ADDEN DUM Moira Tobar, [facility] [address] [place], [address] , [facility] 2 15:37:16 Lateral epicondy litis 219383925 Completed 200801/07/2014 RECORDED 12/20/19 09 11:10AM BY HERACLIO NETTLESATI ON/ADDEN DUM Maritza Martinez null, [facility] 6 15:42:18 Lymphade nitis 48331719 Completed 201101/07/2014 RECORDED 02/17/20 12 4:35PM BY LINDA TORIBIO MA, HERACLIOATI ON/ADDEN DUM Maritza Martinez null, [facility] 6 15:42:18 Elevated level of transami nase and lactic acid dehydrog enase 049773577 Completed 200801/07/2014 RECORDED 12/20/19 09 11:09AM BY HERACLIO NETTLESATI ON/ADDEN DUM Maritza Martinez null, [facility] 6 15:42:18 Shoulder joint pain 112863958 Completed 201101/07/2014 RECORDED 02/17/20 12 4:34PM BY LINDA TORIBIO MA, HERACLIOATI ON/ADDEN DUM Maritza Martinez null, [facility] 6 15:42:18 Palpitat ions 90399353 Completed 200801/07/2014 RECORDED 12/20/19 09 11:09AM BY HERACLIO NETTLESATI ON/ADDEN DUM Maritza Martinez null, [facility] 6 15:42:18 Prematur e menopaus e 022030568 Completed 201101/07/2014 RECORDED 02/17/20 12 4:34PM BY LINDA TORIBIO MA, ANNOTCHUNG ON/ADDEN DUM Maritza Martinez null, [facility] 6 15:42:18 Eruption [id number] Completed 201101/07/2014 RECORDED 02/17/20 12 4:34PM BY LINDA TORIBIO MA, ANNOTATI ON/ADDEN DUM Maritza Martinez null, [facility] 6 15:42:18 Adult health examinat ion Completed 201101/07/2014 RECORDED 02/27/20 12 10:12AM BY ANGELIA PARR MA, ANNOTATI ON/ADDEN DUM Maritza Martinez null, [facility] 6 15:42:18 Screenin g for malignan t neoplasm of colon Completed 200701/07/2014 RECORDED 01/12/20 08 1:25PM BY JANUARY BAEZA MA, ANNOTATI ON/ADDEN DUM Maritza Martinez null, [facility] 6 15:42:19 Viral disease 50894999 Completed 201101/07/2014 RECORDED 02/17/20 12 4:34PM BY LINDA TORIBIO MA, ANNOTATI ON/ADDEN DUM Maritza Martinez null, [facility] 6 15:42:18 Abnormal weight gain 276787718 Completed 201101/07/2014 RECORDED 02/17/20 12 4:35PM BY LINDA TORIBIO MA, ANNOTATI ON/ADDEN DUM Maritza Martinez null, [facility] 6 15:42:18 Brachial neuritis 08531588 Active 2013 NETO Drew, [facility] 8 11:03:11 Degenera tion of lumbar interver tebral disc 50242499 Active 2013 NETO Drew, [facility] 8 11:03:01 Stress fracture of metatars al bone 610217110 Active Maritza alvarez [facility] 6 15:42:18 Injury of hip region 685378877 Active Maritza alvarez, [facility] 6 15:42:18 Greater trochant sneha pain syndrome 9968482 Active Maritza Martinez null, [facility] 6 15:42:18 Influenz a 6859413 Completed 01/14/2017 NETO Mancini, [facility] 7 09:55:05 Ex-smoke r 3270315 Active 2017 NETO Drew, [facility] 8 11:03:43 Osteopor osis 17199339 Active 2016 NETO Drew, [facility] 8 11:08:51 Endometr ial carcinom a 969980095 Active NETO Drew, [facility] 8 11:10:31 History of hysterec samuel 497706220 Active due to endometr ial cancer NETO Drew, [facility] 8 11:10:47 Exposure to SARS-CoV -2 Completed 02/29/2020 Removal Reason: Problem added by user [email or web address] from the COVID-19 watch flag [address] [facility] [address] [facility] [address], [place], [address], [facility] 0 09:42:29 Pruritus of vulva 65610718 Active 2019 Shanel Bearden CPP null, [facility] 0 09:49:53 Pes anserinu s bursitis of right knee [id number] 48645 Active 2021 Blane Singh PA-C [address] [facility] [address], [place], [address], [facility] 2 11:36:53 Migraine 28461249 Active [address] [facility] [address], [place], [address], [facility] 2 15:37:16 Impaired fasting glycemia 126007631 Active 2021 Moira Tobar, [facility] [address], [place], [address], [facility] 2 15:37:16 Hyperlip idemia 85113165 Active 2021 RECORDED 02/17/20 12 4:34PM BY LINDA TORIBIO MA, ANNOTATI ON/ADDEN DUM Moira Tobar, [facility] [address], [place], [address], [facility] 2 15:37:16 Fatigue 77579843 Active 2021 Moira Tobar, [facility] [address], [place], [address], [facility] 2 15:37:16 Bone density finding 186394829 Active 2021 Moira Tobar, [facility] [address], [place], [address], [facility] 2 09:59:56 Loss of hair 486498791 Active 2021 Moira Tobar, [facility] [address] [facility] [address], [place], [address], [facility] 2 10:00:44 Chest pain 63378075 Active 2021 Moira Tobar, [facility] [address], [place], [address], [facility] 2 10:05:33 Moderate recurren t major depressi on 77853341 Active 2022 Moira Tobar, [facility] [address], [place], [address], [facility] 3 08:59:16 Osteoart hritis 008232613 Active 2023 Moira Tobar, [facility] [address], [place], [address], [facility] 4 11:12:49 Multiple joint pain 68640618 Active 2023 Moira Tobar, [facility] [address], [place], [address], [facility] 4 11:13:49 Acute pharyngi tis 834011859 Active 2023 Kelli darling MA null, [facility] 4 09:06:36 Acute conjunct ivitis 87189814 Completed 201112/14/2013 RECORDED 02/17/20 12 4:34PM BY LINDA TORIBIO MA, ANNOTATI ON/ADDEN DUM Maritza Martinez antonio, [facility] 6 15:42:18 Acute sinusiti s 07963455 Completed 200712/14/2013 RECORDED 01/12/20 08 1:25PM BY JANUARY BAEZA MA ANNOTATI ON/ADDEN DUM Maritza Martinez [facility] 6 15:42:18 Allergic rhinitis 09044146 Active 2013 NETO Drew, [facility] 8 11:03:16 Anxiety state 210841810 Active 2013 NETO Drew, [facility] 8 11:02:46 Screenin g for malignan t neoplasm of breast Completed 201112/14/2013 RECORDED 02/17/20 12 4:34PM BY LINDA TORIBIO MA, ANNOTATI ON/ADDEN DUM Maritza Martinez antonio, [facility] 6 15:42:19 Brachial neuritis 20614172 Completed 201212/14/2013 RECORDED 07/06/19 13 9:04AM BY ANGELIA PARR MA, MARILEE ON/ADDEN DUM Maritza Martinez antonio [facility] 6 15:42:19 Chronic pain syndrome 796724924 Active 2013 STORY: SORREL/N EURO OFFICE MANAGING OPIATES NETO Drew, [facility] 8 11:03:08 Conjunct ivitis 1041534 Completed 200812/14/2013 RECORDED 12/20/19 09 11:09AM BY MARILEE NETTLES ON/ADDEN DUM Maritza Martinez antonio [facility] 6 15:42:18 Cough 18538677 Completed 200812/14/2013 RECORDED 11/04/19 09 1:57PM BY MARILEE MOFFETT ON/ADDEN DUM Maritza Martinez antonio [facility] 6 15:42:18 Disorder of nail 92295656 Completed 201112/14/2013 RECORDED 02/27/20 12 10:12AM BY ANGELIA PARR MA, MARILEE ON/ADDEN DUM Maritza Martinez antonio [facility] 6 15:42:18 Single major depressi ve episode Active 2013 STORY: STEFANIIN GVaibhav PARSON G MEDS NETO Drew, [facility] 8 11:03:22 Dysphagi a 70942490 Completed 200812/14/2013 RECORDED 11/04/19 09 1:57PM BY MARILEE MOFFETT ON/ADDEN DUM Maritza Juan alvarez [facility] 6 15:42:18 Dysuria 81244908 Completed 201301/14/2017 RECORDED 06/15/19 14 8:25AM BY TATYANA ALBRIGHT MA, OFFICE VISIT NETO Mancini [facility] 7 09:55:00 Dysuria 81150621 Completed 200812/14/2013 RECORDED 12/20/19 09 11:10AM BY MARILEE NETTLES ON/ADDEN DUM NETO Mancini, [facility] 7 09:55:01 Edema 109943583 Completed 200812/14/2013 RECORDED 12/20/19 09 11:09AM BY MARILEE NETTLES ON/ADDEN DUM Maritza Juan alvarez, [facility] 6 15:42:18 Elevated blood-pr essure reading without diagnosi s of hyperten efe 946571267 Completed 201112/14/2013 RECORDED 02/17/20 12 4:34PM BY LINDA TORIBIO MA, MARILEE ON/ADDEN DUM Maritza Martinez antonio, [facility] 6 15:42:18 Malignan t neoplasm of corpus uteri, excludin g isthmus 076623369 Active 2013 STORY: S/P SURGERY/ HAS PUBLIC SAFETY TELECOMMUNICATOR ONCOLOGY F/U NETO Drew, [facility] 8 11:02:41 Gastroes ophageal reflux disease 904259717 Active 2013 NETO Drew, [facility] 8 11:02:57 Malaise and fatigue 553036111 Completed 201312/14/2013 RECORDED 06/15/19 14 7:45AM BY TATYANA ALBRIGHT MA, MARILEE ON/ADDEN DUM Maritza Martinez null, [facility] 6 15:42:18 Influenz a vaccine needed 36310006050 06 Completed 201312/14/2013 RECORDED 06/15/19 14 7:45AM BY TATYANA ALBRIGHT MA, MARILEE ON/ADDEN DUM Maritza Juan alvarez, [facility] 6 15:42:18 Tobacco user [id number] Completed 201302/19/2018 Removal Reason: quit NETO Drew, [facility] 8 11:03:33 History of clinical finding in subject 435745517 Completed 201211/23/2016 RECORDED 02/10/20 13 8:43AM BY JANUARY BAEZA MA, ANNOTATI ON/ADDEN DUM NETO Mancini, [facility] 7 11:21:02 Tobacco user [id number] Completed 201212/14/2013 RECORDED 02/10/20 13 8:43AM BY JANUARY BAEZA MA, ANNOTATI ON/ADDEN DUM NETO Drew, [facility] 8 11:03:33 General examinat ion of patient Completed 200812/14/2013 RESOLVED DATE: 10/05/19 09; RECORDED 10/05/19 09 9:36AM BY MARILEE MOFFETT ON/ADDEN DUM Maritza alvarez, [facility] 6 15:42:18 Headache 54658664 Completed 201112/14/2013 STORY: NEW ONSET ACCOMPAN IED BY TINGLING LEFT SIDE OF MOUTH AND H/O RIGHT SIDED HAND WEAKNESS LAST NIGHT; IMPRESSI ON: NON-FOCA L NEURO EXAM AND NO FACIAL PALSY BUT CONCERNI NG HISTORY, WILL GET HEAD CT; RECORDED 02/17/20 12 4:34PM BY LINDA TORIBIO MA, MARILEE ON/ADDEN DUM Maritza alvarez, [facility] 6 15:42:18 Hyperlip idemia 92692228 Completed 201112/14/2013 RECORDED 02/17/20 12 4:34PM BY LINDA TORIBIO MA, HERACLIOATI ON/ADDEN DUM Moira Tobar, [facility] [address] [address], [facility] [place], [address] , [facility] 2 15:37:16 Insomnia 257464183 Active 2013 NETO Drew [facility] 8 11:02:43 Laborato ry procedur e performe d 685356972 Completed 201311/23/2016 RECORDED 08/28/19 14 1:30PM BY ANDRZEJ ROBINS, LAB REQ NETO Mancini [facility] 7 11:20:31 Lateral epicondy litis 420390010 Completed 200812/14/2013 RECORDED 12/20/19 09 11:10AM BY MARILEE NETTLES ON/ADDEN EARNEST alvarez [facility] 6 15:42:18 Low back pain 121813214 Active 2013 NETO Drew [facility] 8 11:03:04 Lymphade nitis 92458104 Completed 201112/14/2013 RECORDED 02/17/20 12 4:35PM BY LINDA TORIBIO MA, ANNOTATI ON/ADDKRISTEN alvarez [facility] 6 15:42:18 Menopaus al symptom 35280247 Active 2013 NETO Drew [facility] 8 11:02:47 Fibromyo sitis 62326245 Active 2013 STORY: CHRONIC PAIN/ SEE NEURO CONSULT NETO Drew [facility] 8 11:02:52 Neuralgi a 32604250 Active 2013 NETO Drew [facility] 8 11:02:36 Elevated level of transami nase and lactic acid dehydrog enase 280632135 Completed 200812/14/2013 RECORDED 12/20/19 09 11:09AM BY MA SRIKANTH CONRADO, ANNOTATI ON/ADDEN DUM Maritza Martinez null, [facility] 6 15:42:18 Disorder of bone and articula r cartilag e 385986041 Active 2013 January campbell MA null, [facility] 8 11:02:54 Shoulder joint pain 189710830 Completed 201112/14/2013 RECORDED 02/17/20 12 4:34PM BY LINDA TORIBIO MA, ANNOTATI ON/ADDEN DUM Maritza Martinez null, [facility] 6 15:42:18 Palpitat ions 75424370 Completed 200812/14/2013 RECORDED 12/20/19 09 11:09AM BY NETO CAMP, HERACLIOATI ON/ADDEN DUM Maritza Martinez null, [facility] 6 15:42:18 Prematur e menopaus e 362991322 Completed 201112/14/2013 RECORDED 02/17/20 12 4:34PM BY LINDA TORIBIO MA, ANNOTATI ON/ADDEN DUM Maritza Martinez null, [facility] 6 15:42:18 Eruption [id number] Completed 201112/14/2013 RECORDED 02/17/20 12 4:34PM BY LINDA TORIBIO MA, ANNOTATI ON/ADDEN DUM Maritza Martinez null, [facility] 6 15:42:18 Adult health examinat ion Completed 201112/14/2013 RECORDED 02/27/20 12 10:12AM BY ANGELIA PARR MA, ANNOTATI ON/ADDEN DUM Maritza Martinez null, [facility] 6 15:42:18 Screenin g for malignan t neoplasm of colon Completed 200712/14/2013 RECORDED 01/12/20 08 1:25PM BY JANUARY BAEZA MA, ANNOTATI ON/ADDEN DUM Maritza Martinez null, [facility] 6 15:42:19 Urinary incontin ence 931894986 Active 2013 NETO Drew [facility] 8 11:02:38 Viral disease 09645314 Completed 201112/14/2013 RECORDED 02/17/20 12 4:34PM BY LINDA TORIBIO MA, ANNOTATI ON/ADDEN DUM Maritza Martinez [facility] 6 15:42:18 Abnormal weight gain 180542246 Completed 201112/14/2013 RECORDED 02/17/20 12 4:35PM BY LINDA TORIBIO MA, ANNOTATI ON/ADDEN DUM Maritza [facility] 6 15:42:18 Problem Notes None recorded. Procedures Surgical History Date Name Laterality Status Provider Name and Address Organization Details Recorded Time 12/15/19 24 Most Recent Mammogram completed DOT [facility] [address], [address], [facility] 03/16/2024 11:10:14 11/11/19 24 Date of Last Pap Smear completed DOT Chan [facility] [address], [place], [address], [facility] 03/16/2024 11:10:09 12/13/19 23 Most Recent Bone Density completed [facility] [address] [address], [place], [address], [facility] 03/11/2023 08:57:06 07/03/19 23 complete repair of rotator cuff completed [facility] [address] [address], [place], [address], [facility] 03/11/2023 08:55:25 11/02/19 22 Date of Last Colonoscopy completed Yumiko Gomez [facility] 11/07/2021 13:42:02 11/02/19 22 Colonoscopy completed Yumiko Gomez [facility] 11/07/2021 13:41:52 01/30/20 21 injection completed Donna Robins [facility] 03/27/2021 14:42:22 04/23/20 20 Mammogram Screening completed Vani Patel MA [facility] 03/11/2023 08:32:50 08/01/19 20 Carpal tunnel surgery completed [facility] [address] [facility], [place], [address], [facility] 02/29/2020 09:53:36 10/24/19 17 Dxa bone density study completed Ana Hood [facility] 01/15/2017 14:18:52 06/02/19 11 Tabitha arthrs srg capsulorraphy completed January carballo MA [facility] 02/19/2018 11:27:00 06/02/19 11 Orthopedic Surgery completed Tatyana Albright MA [facility] 03/06/2021 11:05:25 06/02/19 05 Hysterectomy completed Tatyana Albright MA [facility] 03/06/2021 11:05:25 06/02/19 05 Oophorectomy completed [address] [facility] [address] [facility], [place], [address], [facility] 02/19/2018 11:48:11 06/02/19 04 Total hysterectomy completed [facility] [address] [facility], [place], [address], [facility] 02/19/2018 11:48:23 06/02/19 04 Endometrial Ablation completed Tatyana Albright MA [facility] 03/06/2021 11:05:25 06/02/19 04 Cancer Surgery completed Tatyana Albright MA [facility] 03/06/2021 11:05:25 06/02/19 04 [facility]ometrial Biopsy [facility] 03/06/2021 11:05:25 06/02/18 91 Ectopic completed [facility] [address] [facility] [address], [place], [address], [facility] 02/19/2018 11:49:02 06/02/18 75 Adenoidectomy completed Tat[facility]ana Albright [facility] 03/06/2021 11:05:25 06/02/18 72 Tonsillectomy completed Tatyana Albright [facility] 03/06/2021 11:05:25 Appendectomy completed Tatyana Albright MA [facility] 12/23/2013 09:02:16 Tonsillectomy completed Tatyana nguyen [facility] 03/06/2021 11:05:25 Imaging Results Imaging Date Name Status LastModified by Organization Details LastModified Time 03/08/2022 electrocardiogram completed [email or web address] In-Offi ce Order Internal Use Only DO Not Attach Compendium DO Not Attach Compendium, Do Not Delete/merge, [id number] 03/08/2022 10:37:50 03/08/2022 electrocardiogram completed [email or web address] In-Offi ce Order Internal Use Only DO Not Attach Compendium DO Not Attach Compendium, Do Not Delete/merge, [id number] 03/08/2022 10:17:27 12/12/2022 MAMMO, screening, digital, bilateral completed [email or web address] [facility] ([facility] [address] [place], [address], 12/12/2022 13:45:48 12/12/2022 DEXA, axial skeleton completed CHANDRIKA [facility] ([facility] Imaging) [address] [place], [address], 12/13/2022 14:14:03 03/17/2023 electrocardiogram completed [email or web address] In-Offi ce Order Internal Use Only DO Not Attach Compendium DO Not Attach Compendium, Do Not Delete/merge, [id number] 03/18/2023 09:02:19 03/11/2023 electrocardiogram completed [email or web address] In-Offi ce Order Internal Use Only DO Not Attach Compendium DO Not Attach Compendium, Do Not Delete/merge, [id number] 03/11/2023 09:18:48 Procedure Notes None recorded. Medical Equipment None Reported. Allergies Allergen ID Allergen Name Allergen Category Reaction Reaction Severity Criticality Documentation Date Start Date Code Code System Note Provider Name and Address Organization Details Recorded Time 32013 Substance with sulfonami de structure and antibacte rial mechanism of action (substanc e) medicatio n rash Not available Not available 12/23/20132013 [id number] [facility] 13:27:30 190 Medicinal product containin g penicilli n and acting as antibacte rial agent (product) medicatio n rash Not available Not available 12/14/20132013 33512 05 SNOMED NETO Drew [facility] 8 11:00:00 Medications Name Sig Start Date Stop Date Status Note LastModified by Organization Details LastModified Time quetiapin e 25 mg tablet active Not Available Not Available Not Available fluoxetin e 40 mg capsule TAKE 2 CAPSULES BY MOUTH EVERY DAY active Not Available Not Available No t Available cyclobenz aprine 10 mg tablet AT BEDTIME 02/09 completed RECORDED 02/10/20 13 8:50AM BY JANUARY BAEZA MA, OFFICE VISIT; Not Available Not Available Not Available desonide 0.05 % topical cream Apply 1 applicat ion as needed by topical route for 15 days. 03/08 completed Not Available Not Available Not Available prednison e 10 mg tablet Take 5 tablets every day by oral route for 15 days. 02/19 completed Not Available Not Available Not Available doxycycli ne hyclate 100 mg capsule TAKE 1 CAPSULE BY MOUTH TWICE A DAY FOR 10 DAYS 03/08 completed Not Available Not Available Not Available triazolam 0.25 mg tablet PLEASE SEE ATTACHED FOR DETAILED DIRECTIO NS 03/16 completed Not Available Not Available Not Available cetirizin e 10 mg tablet Take 1 tablet every day by oral route for 30 days. 02/23 completed Not Available Not Available Not Available citalopra m 10 mg tablet TAKE 1 TABLET BY MOUTH EVERY DAY 03/06 completed Not Available Not Available Not Available sumatript an 100 mg tablet Take 1 tablet every day by oral route as needed for 30 days. 03/16 completed Not Available Not Available Not Available meloxicam 15 mg tablet Take 1 tablet every day by oral route for 30 days. 03/08 completed Not Available Not Available Not Available prednison e 20 mg tablet PER SLIDING SCALE active RECORDED 01/12/20 11 2:20PM BY AGUS ESPINOSA, ANNOTCHUNG ON/MIKE TINOCO;STAR T WITH 3 TID X 1 D, 2 TID X 1 D, 1 TID X 1 DAY UNTIL FINISHED (MIKE MERCEDES) Not Available Not Available Not Available sertralin e 100 mg tablet Take 2 tablets every day by oral route. 03/06 completed Not Available Not Available Not Available prednison e 5 mg tablet TAKE 2 TABLETS TWICE A DAY X7 DAYS THEN 1 TAB TWICE A DAY X2 DAYS THEN 1 TAB DAILY X 2 DAYS 02/28 completed Not Available Not Available Not Available clobetaso l 0.05 % topical cream Apply by topical route for 7 days. 03/06 completed Not Available Not Available Not Available Zithromax Z-Jp 250 mg tablet DAILY 10/09 completed RECORDED 10/11/19 09 11:09AM BY DAVE PARR, PAKeylaC, MEDICATI ON AUTO-BRODERICK CTIVATIO N;2 TABS DAY ONE, THEN 1 TAB DAILY DAYS 2-5 Not Available Not Available Not Available lidocaine HCl 2 % mucosal jelly Take 1 applicat ion as needed by mucous mem route for 14 days. 02/28 completed for prolapse Not Available Not Available Not Available doxepin 10 mg capsule 01/14 completed Not Available Not Available Not Available Tamiflu 75 mg capsule Take 1 capsule twice a day by oral route for 5 days. 11/23 completed Not Available Not Available Not Available meloxicam 7.5 mg tablet active Not Available Not Available Not Available bupropion HCl 100 mg tablet Take 1 tablet twice a day by oral route. 10/20 completed Not Available Not Available Not Available terbinafi ne HCl 250 mg tablet po 01/14 completed Not Available Not Available Not Available citalopra m 20 mg tablet TAKE 1 TABLET BY MOUTH EVERY DAY 03/06 completed Not Available Not Available Not Available Claritin- D 24 Hour 10 mg-240 mg tablet,ex tended release Take 1 tablet every day by oral route in the evening. active Not Available Not Available No t Available lorazepam 0.5 mg tablet AT BEDTIME 11/23 completed Not Available Not Available Not Available temazepam 15 mg capsule take 2 capsules (30 mg) by mouth every day at bedtime as needed active Not Available Not Available No t Available Fosamax 70 mg tablet A WEEK 06/15 completed RECORDED 06/15/19 14 8:21AM BY TATYANA ALBRIGHT MA, OFFICE VISIT; Not Available Not Available Not Available aspirin 325 mg tablet,de layed release TAKE 1 TABLET BY MOUTH EVERY DAY FOR 14 DAYS STARTING THE DAY AFTER SURGERY DIRECTED 03/16 completed Not Available Not Available Not Available ciproflox acin 0.3 % eye drops BID 11/28 completed RECORDED 12/07/19 09 3:58PM BY AGUS ESPINOSA MEDICATI ON AUTO-BRODERICK CTIVATIO N; Not Available Not Available Not Available baclofen 10 mg tablet 1 po hs 01/14 completed Not Available Not Available Not Available hydrocodo ne 7.5 mg-acetam inophen 325 mg tablet Take 1 tablet 3 times a day by oral route as directed for 30 days. 2023 active Pt going on vacation on Friday- needs filled prior. Not Available Not Available Not Available cephalexi n 500 mg capsule TAKE 1 CAPSULE BY MOUTH 3 TIMES A DAY DIRECTED START ONE DAY BEFORE SURGERY. 03/16 completed Not Available Not Available Not Available buspirone 10 mg tablet Take 1 tablet twice a day by oral route for 30 days. 02/19 completed Not Available Not Available Not Available lansopraz ole 30 mg capsule,d elayed release TWO TIMES DAILY 11/23 completed RECORDED 06/15/19 14 8:47AM BY DOUGLAS HUI MD, OFFICE VISIT; Not Available Not Available Not Available polymyxin B sulfate 10,000 unit-trim ethoprim 1 mg/mL eye drops QID 04/11 completed RECORDED 05/09/20 09 11:31AM BY DAVE PARR, PAKeylaC, MEDICATI ON AUTO-BRODERICK CTIVATIO N; Not Available Not Available Not Available indometha dawson 25 mg capsule 11/23 completed Not Available Not Available Not Available bupropion HCl 75 mg tablet Take 1 tablet every day by oral route. 03/06 completed Not Available Not Available Not Available Calcium-6 00 600 mg (as calcium carbonate 1,500 mg) tablet Take 1 tablet every day by oral route. active Not Available Not Available No t Available fluoxetin e 10 mg capsule TAKE 1 CAPSULE BY MOUTH EVERY DAY *STOP CITALOPR AM 03/06 completed Not Available Not Available Not Available mometason e 50 mcg/actua tion nasal spray SPRAY 2 SPRAYS INTO EACH NOSTRIL EVERY DAY 03/06 completed Not Available Not Available Not Available sertralin e 25 mg tablet 11/23 completed Not Available Not Available Not Available omeprazol e 20 mg capsule,d elayed release Take 1 capsule every day by oral route. 02/19 completed Not Available Not Available Not Available hydrocodo ne 5 mg-acetam inophen 500 mg tablet THREE TIMES DAILY, NEEDED active Not Available Not Available No t Available acetamino phen 300 mg-codein e 60 mg tablet active Not Available Not Available Not Available zolpidem 5 mg tablet QHS / HS 01/27 completed RECORDED 01/28/20 09 10:48AM BY DOUGLAS HUI MD, ANNOTATI ON/MIKE DUM; Not Available Not Available Not Available levofloxa dawson 500 mg tablet QD 05/17 completed RECORDED 06/03/19 08 2:41PM BY DOUGLAS HUI MD, MEDICATI ON AUTO-BRODERICK CTIVATIO N; Not Available Not Available Not Available estradiol 0.01% (0.1 mg/gram) vaginal cream Insert 1 g every week by vaginal route as directed for 90 days. 03/11 completed Not Available Not Available Not Available methylpre dnisolone 4 mg tablets in a dose pack TAKE 6 TABLETS ON DAY 1 DIRECTED ON PACKAGE AND DECREASE BY 1 TAB EACH DAY FOR A TOTAL OF 6 DAYS 03/06 completed Not Available Not Available Not Available fluoxetin e 20 mg capsule Take 1 capsule every day by oral route for 30 days. 07/02 completed Increase in dose Not Available Not Available Not Available fluticaso ne propionat e 50 mcg/actua tion nasal spray,[facility] [employer] [place] 2 sprays every day by intranas al route as directed for 30 days. 02/23 completed Not Available Not Available Not Available estradiol 25 mcg vaginal tablet PER WEEK 11/15 completed RECORDED 11/16/19 11 1:22PM BY JANUARY BAEZA MA, OFFICE VISIT; Not Available Not Available Not Available clotrimaz ole 1 % topical cream APPLY TO AFFECTED AREA TWICE A DAY 03/06 completed Not Available Not Available Not Available sertralin e 50 mg tablet QHS 01/14 completed po Not Available Not Available Not Available Ambien 10 mg tablet AT BEDTIME active RECORDED 06/15/19 14 8:22AM BY TATYANA ALBRIGHT MA, OFFICE VISIT; Not Available Not Available Not Available loratadin e 10 mg tablet Take 1 tablet every day by oral route for 30 days. 10/20 completed Not Available Not Available Not Available naproxen 500 mg tablet TAKE 1 TABLET BY MOUTH TWICE A DAY FOR 5 DAYS RIRI Smith THE [facility] N/SUE Smith YOU GET HOME FROM SURGERY. TAKE WITH FOOD, STOP IF STOMACH DISCOMFO RT. 03/11 completed Not Available Not Available Not Available diazepam 5 mg tablet Take 2 tablets (10 mg) by mouth daily as needed active Not Available Not Available No t Available oxycodone 5 mg tablet TAKE 1 TABLET UP TO ONCE A DAY NEEDED FOR SEVERE PAIN 03/11 completed Not Available Not Available Not Available Vitamin D 50,000 unit capsule Q 4 WEEKS 11/09 completed RECORDED 11/10/19 10 8:22AM BY JANUARY BAEZA MA, OFFICE VISIT; Not Available Not Available Not Available Vitamin D3 25 mcg (1,000 unit) capsule Take 1 capsule every day by oral route. active Not Available Not Available No t Available cyclobenz aprine 5 mg tablet TAKE 1 TABLET BY MOUTH EVERY DAY AT BEDTIME NEEDED 03/06 completed Not Available Not Available Not Available bupropion HCl XL 150 mg 24 hr tablet, extended release 02/19 completed Not Available Not Available Not Available topiramat e 50 mg tablet AT BEDTIME 11/15 completed RECORDED 11/16/19 11 1:22PM BY JANUARY BAEZA MA, OFFICE VISIT; Not Available Not Available Not Available duloxetin e 20 mg capsule,d elayed release Take 1 capsule every day by oral route. 01/14 completed Not Available Not Available Not Available duloxetin e 30 mg capsule,d elayed release TAKE 1 TO 2 CAPSULES EVERY MORNING 04/06 completed Not Available Not Available Not Available eszopiclo ne 2 mg tablet 01/14 completed Not Available Not Available Not Available Lyrica 75 mg capsule active Not Available Not Available Not Available Lyrica 150 mg capsule 11/23 completed Not Available Not Available Not Available chlorhexi dine gluconate 0.12 % mouthwash PLEASE SEE ATTACHED FOR DETAILED DIRECTIO NS 03/16 completed Not Available Not Available Not Available Vicodin THREE TIMES DAILY, NEEDED 02/09 completed RECORDED 02/10/20 13 8:50AM BY JANUARY BAEZA MA, OFFICE VISIT; Not Available Not Available Not Available Vitamin D3 1000 units daily 02/19 completed Not Available Not Available Not Available Abilify 03/11 completed Not Available Not Available Not Available hydrocodo ne 7.5 mg-acetam inophen 300 mg tablet Take 1 tablet every day by oral route for 30 days. 01/11 completed Not Available Not Available Not Available aripipraz ole 2 mg tablet TAKE 1 TABLET BY MOUTH EVERY DAY IN THE MORNING 03/16 completed Not Available Not Available Not Available diclofena c 1 % topical gel APPLY 1-2 GRAMS ON EFFECTED AREA FOR 4 TIMES DAILY DIRECTED DO NOT EXCEED 16 GRAMS DAILY,PM 03/06 completed Not Available Not Available Not Available cholecalc iferol (vitamin D3) 50 mcg (2,000 unit) tablet DAILY 06/15 completed RECORDED 06/15/19 14 8:22AM BY TATYANA ALBRIGHT MA, OFFICE VISIT; Not Available Not Available Not Available GaviLyte- G 236 gram-22.7 4 gram-6.74 gram-5.86 gram oral solution 07/02 completed Not Available Not Available Not Available Dexilant 60 mg capsule, delayed release active Not Available Not Available Not Available duloxetin e 40 mg capsule,d elayed release 11/23 completed Not Available Not Available Not Available Afluria 1155-8158 (PF) 45 mcg (15 mcg x 3)/0.5 mL IM syringe active Not Available Not Available Not Available naloxone 4 mg/actuat ion nasal spray PLEASE SEE ATTACHED FOR DETAILED DIRECTIO NS 03/16 completed Not Available Not Available Not Available Afluria Qd 2018- (36 mos up)(PF)60 mcg (15 mcg x4)/0.5 mL IM syringe 10/20 completed Not Available Not Available Not Available Vitals Date Recorded Body height Provider Name an d Address Organization Details Last Updated DateTime 01/11/2022 152.4 cm Tatyana Albright MA [facility] 01/11/2022 09:15:05 Date Recorded Body height Body mass index (BMI) Body weight Heart rate Oxygen saturation Oxygen saturation in Arterial blood by Pulse oximetry Body temperature Systolic blood pressure Diastolic blood pressure Provider Name and Address Organization Details Last Updated DateTime 2 152.4 cm 29.3 kg/m2 08150.5 6 g 84 /min 96 % 96 % 97.7 [degF] 123 mm[Hg] 81 mm[Hg] Lexus Lennon MA [facility] 2 09:41:46 Date Recorded Body height Body mass index (BMI) Body weight Heart rate Oxygen saturation Oxygen saturation in Arterial blood by Pulse oximetry Body temperature Systolic blood pressure Diastolic blood pressure Provider Name and Address Organization Details Last Updated DateTime 3 152.4 cm 31.8 kg/m2 89765.5 6 g 82 /min 97 % 97 % 97.7 [degF] 129 mm[Hg] 80 mm[Hg] Vani Patel MA [facility] 3 08:30:33 Date Recorded Body height Body mass index (BMI) Body weight Heart rate Oxygen saturation Oxygen saturation in Arterial blood by Pulse oximetry Body temperature Systolic blood pressure Diastolic blood pressure Provider Name and Address Organization Details Last Updated DateTime 4 152.4 cm 29.5 kg/m2 69404.4 5 g 86 /min 98 % 98 % 97.6 [degF] 120 mm[Hg] 74 mm[Hg] Kelli darling MA [facility] 4 10:49:11 Date Recorded Body height Body mass index (BMI) Body weight Heart rate Oxygen saturation Oxygen saturation in Arterial blood by Pulse oximetry Body temperature Systolic blood pressure Diastolic blood pressure Provider Name and Address Organization Details Last Updated DateTime 4 152.4 cm 30.1 kg/m2 33834.2 2 g 78 /min 95 % 95 % 98 [degF] 118 mm[Hg] 71 mm[Hg] Kelli darling MA [facility] 4 09:16:20 Social History Question Answer Notes LastModified by Organizat ion Details LastModified Time Tobacco Smoking Status [facility] as a teen [facility]/2018 11:26:01 Do You Have An Advance Directive? Yes HCP Through [employer] [email or web address] Information not available 03/08/2022 What Is Your Level Of Alcohol Consumption? Occasional [email or web address] Information not available 02/23/2019 Is Blood Transfusion Acceptable In An Emergency? Yes Information not available 05/09/2015 What Is Your Level Of Caffeine Consumption? Moderate 2 Cups Of Coffee [email or web address] Information not available 03/08/2022 How Much Tobacco Do You Chew? None Information not available 05/09/2015 Have You Been To An Area Known To Be High Risk For COVID-19? No Information not available 03/16/2024 Are You Currently Employed? No Information not available 03/06/2021 What Type Of Diet Are You Following? REGULAR Information not available 12/23/2013 Which Illicit Or Recreational Drugs Have You Used? None Information not available 02/19/2018 Do You Or Have You Ever Used E-cigarettes Or Vape? Never Used Electronic Cigarettes [email or web address] Information not available 03/08/2022 What Is Your Occupation? [employer] Information not available 03/06/2021 When Did You Quit Smoking? 17+yearssincel fabienne Information not available 03/06/2021 Live Alone Or With Others? With Others Boyfriend (Adam). [email or web address] Information not available 03/08/2022 Do You Take Precautions To Prevent Distracted Driving? Yes Information not available 05/09/2015 How Often Do You Need To Have Someone Help You When You Read Instructions, Pamphlets, Or Other Written Material From Your Doctor Or Pharmacy? Never Information not available 05/09/2015 Have You Served In The ? No Information not available 02/19/2018 Have You Or Anyone In Your Household Had Any Of The Following Symptoms In The Last 14 Days: Sore Throat, Cough, Chills, Body Aches For Unknown Reasons, Shortness Of Breath For Unknown Reasons, Loss Of Smell, Loss Of Taste, Fever At Or Greater Than 100 Degrees Fahrenheit? No [email or web address] Information not available 02/29/2020 Are You Or Anyone In Your Household A Health Care Provider Or Emergency Responder? No [email or web address] Information not available 02/29/2020 To The Best Of Your Knowledge Have You Been In Close Proximity To Any Individual Who Tested Positive For COVID-19? No [email or web address] Information not available 02/29/2020 *AWV ONLY* Are You Presently Prescribed Opioid Medication By PCP Or Specialist? If YES -Provider Assess The Benefit For Other, Non-opioid Pain Therapies Instead, Even If The Patient Does Not Have OUD But Is Possibly At Risk. No Information not available 03/06/2021 Have You Recently Traveled To A COVID-19 High Risk Area Or Gathering In The Last 10 Days? No Information not available 03/06/2021 What Was The Date Of Your Most Recent Tobacco Screening? 03/16/2024 Information not available 03/16/2024 How Many Children Do You Have? 2 [email or web address] Information not available 02/19/2018 What Is Your Current Pack Years? 30ormorepackye ars [email or web address] Information not available 03/08/2022 Do You Use Protection During Sex? No Information not available 03/06/2021 Do You Use Your Seat Belt Or Car Seat Routinely? Yes Information not available 03/06/2021 Seat Belts Used Routinely Yes [email or web address] Information not available 03/08/2022 Are You Sexually Active? No Information not available 03/06/2021 Smoke Alarm In Home Yes [email or web address] Information not available 03/08/2022 Do You Have Smoke And Carbon Monoxide Detectors In Your Home? Yes Information not available 03/06/2021 At What Age Did You Start Smoking Tobacco? 17 Information not available 03/06/2021 Are You Passively Exposed To Smoke? No Information not available 05/09/2015 Do You Or Have You Ever Used Smokeless Tobacco? Never Used Smokeless Tobacco [email or web address] Information not available 02/23/2019 How Much Tobacco Do You Smoke? 1 PPD Information not available 03/06/2021 Do You Use Any Illicit Or Recreational Drugs? No [email or web address] Information not available 03/08/2022 Do You Use Sunscreen Routinely? Yes Information not available 05/09/2015 How Many Years Have You Smoked Tobacco? 3 Information not available 03/06/2021 Do You Or Have You Ever Used Any Other Forms Of Tobacco Or Nicotine? No [email or web address] Information not available 03/08/2022 Sex: Unknown Functional Status Question Answer Note LastModified by Organizat ion Details LastModified Time Are you able to walk? YESWOREST [email or web address] Information not available 03/08/2022 Are you able to care for yourself? No Information not available 03/06/2021 What is your exercise level? Moderate walking; 3 x week Information not available 02/19/2018 Mental Status None recorded. Family History Relationship Description Onset Age of this Age Resolved Age Notes LastModified by Organization Details LastModified Time Mother Hypertensive disorder Mom at 84 [email or web address] Not available 03/06/2021 11:04:48 Father Heart disease 67/CHF abolcun Not available 03/06/2021 11:04:48 Unspecified Relation Attention deficit hyperactivit y disorder abolcun Not available 03/06 11:04:48 Unspecified Relation Anxiety disorder abolcun Not available 2020 11:04:48 Unspecified Relation Depressive disorder abolcun Not available 2020 11:04:48 Unspecified Relation Osteoporosis abolcun Not available 09/2020 11:04:48 Unspecified Relation Arthritis abolcun Not available 021 11:04:48 Sister Rheumatoid arthritis [email or web address] Not available 2023 11:08:45 Medical History Condition Response Anxiety Disorder Y Blood Transfusions Y Arthritis Y Head Injury/Concussion Y Polyps Y Acid Reflux (GERD) Y Cancer Y Diverticulitis Y Allergies Y Depression Y Endometriosis Y Reflux/GERD Y Headaches/Migraines Y Fibromyalgia Y Osteoporosis Y Gynecological History Statement/Question Response If Post Menopausal, Age at Menopause Abnormal Pap Y Date of Last Colonoscopy 11/01/2021 Most Recent Bone Density 12/12/2022 Menses Monthly N Date of Last Pap Smear 11/11/2023 Most Recent Mammogram 12/15/2023 LMP Approximate Obstetrics History GPAL:G 3 P 2 0 1 0 Type Value Full Term 2 Ectopics 1 Total 3 Immunizations Vaccine Type Date Status Note Provider Nam e and Address Organization Details Recorded Time Influenza, split virus, trivalent, preservative 9 completed Not Available [facility] 03/11/2023 08:21:45 Influenza, split virus, trivalent, preservative 7 completed Not Available [facility] 12/14/2013 13:22:22 Tdap 7 completed Not Available [facility] 12/14/2013 13:22:22 Influenza, split virus, trivalent, preservative 9 completed Not Available [facility] 12/14/2013 13:22:22 Influenza, split virus, trivalent, preservative 0 completed Not Available [facility] 12/14/2013 13:22:22 Influenza, split virus, trivalent, preservative 2 completed [facility] 13:22:22 influenza, seasonal, intradermal, preservative free 3 completed Not Available [facility] 12/14/2013 13:22:22 COVID-19, mRNA, LNP-S, PF, 30 mcg/0.3 mL dose 04/01/202 1 completed Allison Jones NETO null, [facility] 07/02/2021 10:47:01 COVID-19, mRNA, LNP-S, PF, 30 mcg/0.3 mL dose 1 completed Allison Jones MA antonio, [facility] 07/02/2021 10:47:01 COVID-19, mRNA, LNP-S, PF, 30 mcg/0.3 mL dose 1 completed Allison Jones MA null, [facility] 07/02/2021 10:47:01 COVID-19, mRNA, LNP-S, PF, 30 mcg/0.3 mL dose, lissy-sucrose 2 completed NETO Foreman, [facility] 01/11/2022 09:15:14 Influenza, split virus, quadrivalent, PF 0 completed Tatyana Albright MA null, [facility] 01/11/2022 09:15:14 Tdap 7 completed Tatyana Albright MA null, [facility] 01/11/2022 09:15:14 Influenza, split virus, quadrivalent, PF 7 completed Tatyana Albright MA null, [facility] 01/11/2022 09:15:14 zoster recombinant 2 completed Tatyana Albright MA null, [facility] 01/11/2022 09:15:14 Influenza, split virus, quadrivalent, PF 9 completed Tatyana Albright MA null, [facility] 01/11/2022 09:15:14 Influenza, split virus, quadrivalent, PF 8 completed Tatyana Albright MA null, [facility] 01/11/2022 09:15:14 Influenza, split virus, quadrivalent, PF 1 completed Tatyana Albright MA null, [facility] 01/11/2022 09:15:14 Influenza, split virus, quadrivalent, PF 2 completed NETO Mena, [facility] 03/08/2022 10:37:31 zoster recombinant 2 completed NETO Mena, [facility] 03/08/2022 10:37:31 COVID-19, mRNA, LNP-S, bivalent, PF, 30 mcg/0.3 mL dose 2 completed NETO Mena, [facility] 03/08/2022 10:37:31 COVID-19, mRNA, LNP-S, PF, lissy-sucrose, 30 mcg/0.3 mL 3 completed NETO Al[place], [facility] 04/06/2024 09:08:43 Influenza, split virus, quadrivalent, PF 3 [facility] [address], [address], [facility] 03/11/2023 09:20:52 Influenza, split virus, trivalent, PF 4 completed [facility] [address] [place] [address], [id number], [facility] 03/16/2024 12:27:34 Past Encounters Encounter ID Performer Location Encounter Start Date Encounter Closed Date Diagnosis/Indication Diagnosis SNOMED-CT Code Diagnosis ICD10 Code [id number] Linda Toribio Main Office [address] [place] [address] 12/23/2013 08:48:31 12/23/2013 09:42:15 Adult health examination 100527352 Pain in axilla 291326349 Hand joint pain [id number] 8 [id number] [facility] [address] [facility] [place] [address] 10/31/2006 00:00:00 [id number] [address] [facility] [place] [address] 02/23/2007 00:00:00 [id number] [facility] [facility] [address] [place] [address] 06/24/2006 00:00:00 [id number] [employer] [address] [place] [address] 05/07/2007 00:00:00 [id number] [employer] [facility] [address] [place] [address] 08/18/2007 00:00:00 [id number] [employer] [facility] [address] [facility] [place] [address] 12/17/2007 00:00:00 [id number] [employer] [facility] [address] [facility] [place] [place] [address] 01/12/2008 00:00:00 [id number] [employer] [address] [facility] [place] [address] 10/04/2008 00:00:00 5793 [employer] [address] [facility],[address] [place] [address] 11/03/2008 00:00:00 5794 [employer]ce [address] [facility] [place] [address] 12/19/2008 00:00:00 5795 [employer]ce [address] [facility] [place] [address] 01/10/2009 00:00:00 5796 [employer] [address] [facility] [place] [address] 01/27/2009 00:00:00 5797 [employer] [address] [facility] [place] [address] 04/04/2009 00:00:00 5798 [employer] [address] [facility] [place] [address] 05/11/2009 00:00:00 5799 [employer] [address] [facility] [place] [address] 11/09/2009 00:00:00 [address] [place] [address] 02/12/2010 00:00:00 5801 [address] [address] [place] [address] 05/15/2010 00:00:00 [address] [place] [address] 11/15/2010 00:00:00 5803 [employer] [address] [facility] [place] [address] 04/17/2011 00:00:00 5804 [employer] [address] [facility] [place] [address] 06/06/2011 00:00:00 5805 [employer] [address] [facility] [place] [address] 07/30/2011 00:00:00 5806 [employer]ce [address] [facility] [place] [address] 10/01/2011 00:00:00 5807 [employer] [address] [facility],[address] [place] [address] 02/18/2012 00:00:00 5808 [employer] [address] [facility] [place] [address] 02/27/2012 00:00:00 5809 [employer]ce [address] [facility] [place] [address] 05/19/2012 00:00:00 5810 [employer] erce [address] [facility] [address] [place] [address] 07/06/2012 00:00:00 5811 [employer]ce [address] [facility],[address] [place] [address] 02/09/2013 00:00:00 [address] [place] [address] 06/15/2013 00:00:00 [id number] Jeane Arlin DUQUE Main Office [address] [address] [place] [address] 10/19/2014 12:57:53 10/19/2014 13:28:15 Foot pain 13078269 Stress fra cture of metatarsal bone 933316222 171936 Douglas beavers Main Office [address] [address] [place] [address] 05/09/2015 13:15:11 05/09/2015 13:42:35 Injury of hip region 563678597 S79.912A Greater tr ochanteric pain syndrome 9828176 M70.62 [id number] Maxim Skinner MD Main Office [address] [address] [place] [address] 09/06/2015 10:18:45 09/06/2015 11:38:58 Influenza 2586832 J11.1 [id number] Macy rosario Main Office [address] [address] [place] [address] 11/23/2016 10:41:02 11/23/2016 11:41:57 Viral syndrome 170099767 B34.9 Allergic rhinitis 519664 04 J30.1 [id number] Douglas beavers Main Office [address] [address] [place] [address] 01/14/2017 09:49:01 01/14/2017 10:40:00 Adult health examination 225726341 Z00.00 Administra tion of diphtheria, pertussis, and tetanus vaccine 037531523 Z23 Needs infl uenza immunization 649138170 Z23 [id number] Douglas beavers Main Office [address] [address] [place] [address] 06/24/2017 14:46:50 06/24/2017 15:36:23 Headache 98572464 R51 Facial swelling 95839636 6 R22.0 Fatigue 80798855 R53.83 [id number] Kyle Brown MD Main Office [address] [address] [place] [address] 02/19/2018 10:54:50 02/19/2018 12:09:11 Adult health examination 952015316 Z00.00 Screening for malignant neoplasm of colon 279293243 Z12.11 Allergic rhinitis 190760 04 J30.1 Needs infl uenza immunization 459628598 Z23 Varicella vaccination 68 816591 Z23 Hepatitis C screening 41 2241347 Z11.59 Greater tr ochanteric pain syndrome 5127782 M70.62 Hyperlipidemia 82219938 E78.5 [id number] Jono Wang MD Main Office [address] [place] [address] 09/19/2018 09:42:40 09/19/2018 10:16:41 Acute pharyngitis 506712534 J02.9 Inflammati on of larynx caused by virus 590387407 J04.0 Allergic rhinitis 762802 04 J30.9 [id number] Main Office [address] [place] [address] 02/23/2019 09:31:53 02/23/2019 10:14:08 Adult health examination 000456135 Z00.00 History of hysterectomy 103958793 Z90.711 Gastroesop hageal reflux disease 805135943 K21.9 Anxiety state 632884986 F41.1 Allergic rhinitis 336004 04 J30.1 Hyperlipidemia 75351807 E78.5 Chronic pain syndrome 37 5377070 G89.4 Fatigue 13504442 R53.83 Menopause present 130221 006 Z78.0 [id number] Blane Singh PA-C [facility] [address] [place] [address] 10/21/2019 09:32:24 10/21/2019 13:09:35 Cluster headache 088916089 G44.009 Counseling 161183095 Z71 .9 Exposure t o viral disease 2367921531 48031 Z03.818 [id number] Blane Singh PA-C Main Office [address] [place] [address] 11/03/2019 09:05:46 11/03/2019 10:31:33 Headache 05152012 R51 Neck pain 05633245 M54.2 Fibromyositis 42178137 M 79.7 Chronic pain syndrome 37 2767756 G89.4 Anxiety state 332158150 F41.1 [id number] Moira Tobar [facility] Main Office [address] [facility] [address] [place] [address] 02/29/2020 09:18:17 02/29/2020 10:15:12 Adult health examination 045885875 Z00.00 Needs infl uenza immunization 187366087 Z23 History of hysterectomy 889291972 Z90.711 Fibromyositis 65701502 M 79.7 Chronic pain syndrome 37 5567639 G89.4 Anxiety state 567579768 F41.1 Migraine 29183881 G43.90 9 Hyperlipidemia 47296642 E78.5 Impaired f asting glycemia 160625324 R73.01 Fatigue 73209810 R53.83 Osteoporosis 53275529 M8 1.0 Chest pain 56033610 R07. 9 [id number] Maxim Skinner MD Main Office [address] [address] 03/31/2020 09:05:12 03/31/2020 09:43:53 Fatigue 39810142 R53.83 [id number] Moira Tobar [facility] Main Office [address] [address] 03/06/2021 10:57:19 03/06/2021 11:52:15 Adult health examination 156175638 Z00.00 History of hysterectomy 530728952 Z90.711 Chronic pain syndrome 37 0536531 G89.4 Anxiety state 027421213 F41.1 Migraine 88625078 G43.90 9 Hyperlipidemia 43814345 E78.5 Impaired f asting glycemia 680741093 R73.01 Fatigue 59211389 R53.83 Osteoporosis 04977365 M8 1.0 Needs infl uenza immunization 739845607 Z23 Screening for malignant neoplasm of breast 803810640 Z12.39 Screening for malignant neoplasm of colon 439057532 Z12.11 Moderate r ecurrent major depression 33429337 F33.1 [id number] Blane Singh PA-C Main Office [address] [address] 07/02/2021 10:34:12 07/02/2021 11:41:25 Pain of right knee region 5108123293 79001 M25.561 Pes anseri nus bursitis of right knee 1678507736 374274 M70.51 [id number] Maxim Skinner MD Located within [facility] [address] [place] [address] 01/11/2022 08:05:20 01/11/2022 09:55:53 Acute sinusitis 28521803 J01.90 [id number] [facility] Main [facility] [address] [place] [address] 03/08/2022 09:26:30 03/08/2022 10:19:42 Adult health examination 307858405 Z00.00 History of hysterectomy 592437490 Z90.711 Chronic pain syndrome 37 2478963 G89.4 Anxiety state 665798334 F41.1 Migraine 04100268 G43.90 9 Hyperlipidemia 63925609 E78.5 Impaired f asting glycemia 456006186 R73.01 Fatigue 16831840 R53.83 Osteoporosis 96444830 M8 1.0 Screening for malignant neoplasm of breast 622504771 Z12.39 Moderate r ecurrent major depression 95056768 F33.1 Bone density finding 385 105232 M85.80 Loss of hair 681371791 L 65.9 Chest pain 64048209 R07. 9 [id number] Moira Tobar [facility] Main Office [address] [address] 03/11/2023 08:19:24 03/11/2023 09:22:01 Adult health examination 651081243 Z00.00 Needs infl uenza immunization 035286439 Z23 History of hysterectomy 486482259 Z90.711 Chronic pain syndrome 37 9878725 G89.4 Anxiety state 670884494 F41.1 Migraine 15531011 G43.90 9 Hyperlipidemia 62754830 E78.5 Impaired f asting glycemia 304559493 R73.01 Fatigue 05261389 R53.83 Moderate r ecurrent major depression 29716700 F33.1 Chest pain 38316485 R07. 9 [id number] Moira Tobar [facility] Main Office [address] [address] 03/16/2024 10:40:09 03/16/2024 11:24:08 Adult health examination 677260692 Z00.00 Needs infl uenza immunization 562481284 Z23 History of hysterectomy 940402947 Z90.711 Chronic pain syndrome 37 6883253 G89.4 Anxiety state 960908771 F41.1 Migraine 17632947 G43.90 9 Hyperlipidemia 66524088 E78.5 Impaired f asting glycemia 131136499 R73.01 Fatigue 46208989 R53.83 Moderate r ecurrent major depression 82633202 F33.1 Osteoarthritis 767620639 M19.90 Multiple joint pain 3567 8005 M25.[id number] Main Office [address] [facility] [address] [place] [address] 04/06/2024 09:03:13 04/06/2024 09:42:19 Acute pharyngitis 281145184 J02.9 Health Concerns Section Related Observation LastModified by Organization Detai ls LastModified Time None Recorded Concern Status LastModified by Organization Details LastModified Time None Recorded Advance Directives Directive Y: HCP through district attorney Payers Encounter Date Sequence Insurance Name Policy Number Policy Regalado Covered Member ID Regalado Member ID Guarantor Name 01/11/2022 1 [facility] [facility] 111 Lata Guzman [id number] Lata Guzman 03/08/2022 1 [employer] [facility] [facility] Lata Guzman [id number] Lata Guzman 03/11/2023 1 [employer] [facility] 111 Lata Guzman [id number] Lata Guzman 03/16/2024 1 [employer] [facility] Lata Guzman [id number] Lata Guzman 04/06/2024 1 [facility] 111 Lata Guzman [id number] Lata Guzman Notes Date Note Type Note Provider Name and Address Organization Details Recorded Time 01/11/2022 text/html TH visit during COVID-19 pandemic. Notes approx 10d history of nasal congestion, headaches, ear pain, facial pain and fatigue. History of allergic rhinitis, but notes that she feels much worse than usual allergy. Now with sweats and chills intermittently, but has not taken her temp at home. Mild cough, but denies SOB. Tested 2 times for COVID with negative results, the second test was 5d after onset of symptoms. Denies sore throat, nausea, vomiting, diarrhea, abd pain. Maxim Skinner MD [address] [address], [place], [address], [facility] 01/11/2022 09:49:21 03/08/2022 text/html Generic HPI TemplateReported bypatient.Notes:-Patie nt presents for PE,-Still out of work due to injury- staying busy, never just sitting- getting out of the house.-Followed by Dr Will and [facility], had injections in her neck.-Followed by Dr cesar for psychiatry - feels more depression recently and anxiety, and fatigue- newer for her-Has a grandson who struggling with mental health currently.- Taking diazepam at least since a day, and vicodin twice daily.- Pap UTD, colo UTD, mammogram usually in winter. DOT Chan [address] [address], [place], [address], [facility] 03/08/2022 10:27:47 03/11/2023 text/html Generic HPI TemplateReported bypatient.Notes:Presen ts for PE. had shoulder surgery on the left in Jul with Dr. Will.recovering well, back to walking.Has prescriber appt monthly, appt today. [facility] [address] [address], [place], [address], [facility] 03/11/2023 09:27:21 03/16/2024 text/html Generic HPI TemplateReported bypatient.Notes:Presen ts for PE.feels like something in her throat when swallowing, no pain, sx for 1 week. no clearing her throat. no sensation of PND. Her neurologist retired- Dr. kilpatrick, he was prescribing hydrocodone 3x/ day for migraines, fibromyalgia/ aches and pains. Medication helps and she is all out, needs a new neurologist. Moira Tobar, [facility] [address] [facility] [address], [place], [address], [facility] 03/16/2024 12:30:08 04/06/2024 text/html Throat PainRepor inder bypatient.Notes:Presen ts with Fatigue started a few weeks ago, sore throat for a few weeks, initially though allergies currently, swollen glands, her grandson did test + for mono last week. Moira Tobar, [facility] [address] [facility] [address], [place], [address], [facility] 04/06/2024 09:54:09 OBGyn Episode No OBEpisode recorded.
--- OUTSIDE RECORDS SUMMARY | 2024-05-20 09:22 | XMS_ITS ---
Author Name [facility] Organization Unknown History of Medication Use Medication Directions Dispensed Refills Start Date End Date Stat us DULoxetine (CYMBALTA) 30 MG capsule TAKE 1 TO 2 CAPSULES BY MOUTH EVERY MORNING 01/17/2023 aborted ARIPiprazole (ABILIFY) 2 MG tablet 01/17/2023 act brandon loratadine (CLARITIN) 10 MG tablet Take 1 tablet (10 mg total) by mouth daily. 01/17/2023 active FLUoxetine (PROzac) 40 MG capsule Take 2 capsules (80 mg total) by mouth daily. 01/17/2023 active HYDROcodone-acetamino phen (VICODIN) 7.5-300 MG per tablet Take 1 tablet by mouth 4 times daily (every 6 hours) as needed for severe pain. 01/17/2023 active VITAMIN D PO Take by mouth. 11/08/2022 a ctive temazepam (RESTORIL) 30 MG capsule Take 1 capsule (30 mg total) by mouth nightly as needed for sleep. 01/17/2023 active diazepam (VALIUM) 5 MG tablet TAKE 1-2 TABLETS BY MOUTH ONCE A DAY NEEDED FOR PANIC ATTACKS 01/17/2023 active
--- OUTSIDE RECORDS SUMMARY | 2024-05-20 09:22 | XMS_ITS | Continuity of Care Document ---
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 13 8:50AM BY BRITTNEY BAEZA MA, OFFICE VISIT; Not Available Not [...] RECORDED 01/12/20 11 2:20PM BY AGUS ESPINOSA, ANNOTATI ON/MIKE TINOCO;STAR T WITH 3 TID X [...] completed RECORDED 06/15/19 14 8:21AM BY TATYANA NINA MA, OFFICE VISIT; Not Available Not Available Not Available aspirin 325 mg tablet,de layed release TAKE 1 TABLET BY MOUTH EVERY DAY FOR 14 DAYS STARTING THE DAY AFTER SURGERY DIRECTED 03/16 completed Not Available Not Available Not Available ciproflox acin 0.3 % eye drops BID 11/28 completed RECORDED 12/07/19 09 3:58PM BY AGUS ESPINOSA, MEDICATI ON AUTO-BRODERICK CTIVATIO N; Not Available [...] 09 10:48AM BY DOUGLAS HUI MD, ANNOTATI ON/ADDEN DUM; Not Available Not Available Not Available [...] e 50 mcg/actua tion nasal spray,[employer] [place] 2 sprays every day by intranas al route as directed for 30 days. 02/23 completed Not Available Not Available Not Available estradiol 25 mcg vaginal tablet PER WEEK 11/15 completed RECORDED 11/16/19 11 1:22PM BY BRITTNEY BAEZA MA, OFFICE VISIT; Not Available Not Available Not Available clotrimaz ole 1 % topical cream APPLY TO AFFECTED AREA TWICE A DAY 03/06 completed Not Available Not Available Not Available sertralin e 50 mg tablet QHS 01/14 completed po Not Available Not Available Not Available Ambien 10 mg tablet AT BEDTIME active RECORDED 06/15/19 14 8:22AM BY TATYANA NINA MA, OFFICE VISIT; Not Available Not Available Not Available loratadin e 10 mg tablet Take 1 tablet every day by oral route for 30 days. 10/20 completed Not Available Not Available Not Available naproxen 500 mg tablet TAKE 1 TABLET BY MOUTH TWICE A DAY FOR 5 DAYS BEGINNIN G THE AFTERNOO N/DAPHNEIN G YOU GET HOME FROM SURGERY. TAKE WITH [...] 11/09 completed RECORDED 11/10/19 10 8:22AM BY BRITTNEY BAEZA MA, OFFICE VISIT; Not Available Not [...] 11/15 completed RECORDED 11/16/19 11 1:22PM BY BRITTNEY BAEZA MA, OFFICE VISIT; Not Available Not [...] 02/09 completed RECORDED 02/10/20 13 8:50AM BY BRITTNEY BAEZA MA, OFFICE VISIT; Not Available Not [...] completed RECORDED 06/15/19 14 8:22AM BY TATYANA NINA MA, OFFICE VISIT; Not Available Not Available Not Available GaviLyte- G 236 gram-22.7 4 gram-6.74 gram-5.86 gram oral solution 07/02 completed Not Available Not Available Not Available Dexilant 60 mg capsule, delayed release active Not Available Not Available Not Available duloxetin e 40 mg capsule,d elayed release 11/23 completed Not Available Not Available Not Available Afluria 3220-9578 (PF) 45 mcg (15 mcg x 3)/0.5 [...] Not Available Vitals Date Recorded Body height Body mass index (BMI) Body weight Heart rate Oxygen saturation Oxygen saturation in Arterial blood by Pulse oximetry Body temperature Systolic blood pressure Diastolic blood pressure Provider Name and Address Organization Details Last Updated DateTime 4 152.4 cm 30.1 kg/m2 18843.2 2 g 78 /min 95 % 95 % 98 [degF] 118 mm[Hg] 71 mm[Hg] Kelli darling MA [facility] 4 09:16:20 Social History Question Answer Notes LastModified by Organizat ion Details LastModified Time Tobacco Smoking Status Former Smoker as a teen NETO Gagnon [facility] 02/19/2018 11:26:01 Do You Have An Advance Directive? 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 Never Used Electronic Cigarettes [email or web address] Information not available 03/08/2022 What Is Your Occupation? [employer] Information not available 03/06/2021 When Did You Quit Smoking? 17+yearssincel fabienne Information not available 03/06/2021 Live Alone Or With Others? With Others Boyfriend (Adam). Information not available 03/08/2022 Do You Take [...] Or Greater Than 100 Degrees Fahrenheit? No [email or web address] Information not available 02/29/2020 Are You Or Anyone In Your Household A Health Care Provider Or Emergency Responder? No [email or web address] Information not available 02/29/2020 To The Best Of Your Knowledge Have You Been In Close Proximity To Any Individual Who Tested Positive For COVID-19? No Information not available 02/29/2020 *AWV ONLY* Are [...] Is Your Current Pack Years? 30ormorepackye ars [email or web address] Information not available 03/08/2022 Do You Use Protection During Sex? No Information not available 03/06/2021 Do You Use Your Seat Belt Or Car Seat Routinely? Yes Information not available 03/06/2021 Seat Belts Used Routinely Yes [email or web address] Information not available 03/08/2022 Are You Sexually Active? No Information not available 03/06/2021 Smoke Alarm In Home Yes [email or web address] Information not available 03/08/2022 Do You Have [...] Use Any Illicit Or Recreational Drugs? No [email or web address] Information not available 03/08/2022 Do You Use Sunscreen Routinely? Yes Information not available 05/09/2015 How Many Years Have You Smoked Tobacco? 3 Information not available 03/06/2021 Do You Or Have You Ever Used Any Other Forms Of Tobacco Or Nicotine? No [email or web address] Information not available 03/08/2022 Sex: Unknown Functional Status Question Answer Note LastModified by Organizat ion Details LastModified Time Are you able to walk? YESWOREST [email or web address] Information not available 03/08/2022 Are you able [...] virus, trivalent, preservative 9 completed Not Available [facility] 03/11/2023 08:21:45 Influenza, split virus, trivalent, preservative 7 completed Not Available [facility] 12/14/2013 13:22:22 Tdap 7 completed Not Available [facility] 12/14/2013 13:22:22 Influenza, split virus, trivalent, preservative 9 completed Not Available [facility] 12/14/2013 13:22:22 Influenza, split virus, trivalent, preservative 0 completed Not Available [facility] 12/14/2013 13:22:22 Influenza, split virus, trivalent, preservative 2 completed Not Available [facility] 12/14/2013 13:22:22 influenza, seasonal, intradermal, preservative free 3 completed Not Available [facility] 12/14/2013 13:22:22 COVID-19, mRNA, LNP-S, PF, 30 mcg/0.3 mL dose 1 completed Allison Jones MA antonio, [facility] 07/02/2021 10:47:01 COVID-19, mRNA, LNP-S, PF, 30 mcg/0.3 mL dose 1 completed Allison Jones MA antonio, [facility] 07/02/2021 10:47:01 COVID-19, mRNA, LNP-S, PF, 30 mcg/0.3 mL dose 1 completed NETO Bernstein, [facility] 07/02/2021 10:47:01 COVID-19, mRNA, LNP-S, PF, 30 mcg/0.3 mL dose, lissy-sucrose 2 [facility] 01/11/2022 09:15:14 Influenza, split virus, quadrivalent, PF 0 completed [facility] 01/11/2022 09:15:14 Tdap 7 completed [facility] 01/11/2022 09:15:14 Influenza, split virus, quadrivalent, PF 7 completed Tatyana Nina NETO antonio, [facility] 01/11/2022 09:15:14 zoster recombinant 2 completed Tatyana Nina MA antonio, [facility] 01/11/2022 09:15:14 Influenza, split virus, quadrivalent, PF 9 completed Tatyana Nina MA antonio, [facility] 01/11/2022 09:15:14 Influenza, split virus, quadrivalent, PF 8 completed NETO Foreman, [facility] 01/11/2022 09:15:14 Influenza, split virus, quadrivalent, PF 1 completed NETO Foreman, [facility] 01/11/2022 09:15:14 Influenza, split virus, quadrivalent, PF 2 completed NETO Mena, [facility] 03/08/2022 10:37:31 zoster recombinant 2 completed NETO Mena, [facility] 03/08/2022 10:37:31 COVID-19, mRNA, LNP-S, bivalent, PF, 30 mcg/0.3 mL dose 2 completed NETO Mena, [facility] 03/08/2022 10:37:31 COVID-19, mRNA, LNP-S, PF, lissy-sucrose, 30 mcg/0.3 mL 3 [facility] 04/06/2024 09:08:43 Influenza, split virus, quadrivalent, PF 3 [address] [place] [address], [address], [facility] 03/11/2023 09:20:52 Influenza, split virus, trivalent, PF 4 [address] [place] [address], [address], [facility] 03/16/2024 12:27:34 Past Encounters Encounter ID Performer Location Encounter Start Date Encounter Closed Date Diagnosis/Indication Diagnosis SNOMED-CT Code Diagnosis ICD10 Code [id number] [facility] Main Office [facility] [address] [address] 03/16/2024 10:40:09 03/16/2024 11:24:08 Adult health examination 381183519 Z00.00 Needs infl uenza immunization 577788680 Z23 History of hysterectomy 124652085 Z90.711 Chronic pain syndrome 37 4204029 G89.4 Anxiety state 150514893 F41.1 Migraine 96509329 G43.90 9 Hyperlipidemia 68510345 E78.5 Impaired f asting glycemia 149851523 R73.01 Fatigue 38264117 R53.83 Moderate r ecurrent major depression 59949374 F33.1 Osteoarthritis 097630487 M19.90 Multiple joint pain 3567 8005 M25.50 [id number] [facility] Main Office [address] [address] 04/06/2024 09:03:13 04/06/2024 09:42:19 Acute pharyngitis 510481218 J02.9 Health Concerns Section Related Observation LastModified by Organization Detai ls LastModified Time None Recorded Concern Status LastModified by Organization Details LastModified Time None Recorded Payers Encounter Date Sequence Insurance Name Policy Number Policy Regalado Covered Member ID Regalado Member ID Guarantor Name 04/06/2024 1 [facility] [employer] [id number] Pantoja Megan [id number] Lata Scarlett Megan Notes Date Note Type Note Provider Name and Address Organization Details Recorded Time 04/06/2024 text/html Throat PainReported bypatient.Notes:Pr esents with Fatigue started a few weeks ago, sore throat for a few weeks, initially though allergies currently, swollen glands, her grandson did test + for mono last week. [address] [address], [place], [address], [facility] 04/06/2024 09:54:09 OBGyn Episode No OBEpisode recorded.
[2024-05-20 10:39] LABS: Erythrocyte Sedimentation Rate 7 MM/HR (0-20)
[2024-05-21 11:48] LABS: Lyme Abs Screen <0.90 index
== END 2024-05-20 09:13 | disposition home or self-care (01) ==
LOC: HO.LAB 09:12
PROVIDERS: PCP Registered Nurse; Visit Provider Psychiatry & Neurology Neurology
DX: M79.7 Fibromyalgia (principal)
CPT/HCPCS: 36415; 85652; 86617; 86618